=== PATIENT | female | born 1945 | race Caucasian/White ===

== ENCOUNTER 2017-03-22 15:32 | Outpatient (CLI) | payer MEDICARE, OTHER | END 2017-03-22 23:59 | disposition home or self-care (01) | DX: Z13.9 Encounter for screening, unspecified (principal); I10 Essential (primary) hypertension ==

== ENCOUNTER 2017-11-08 08:00 | Outpatient (CLI) | payer MEDICARE ==
[2017-11-08 19:13] LABS: BASOPHILS % (AUTO) 0.6 %; EOSINOPHILS # (AUTO) 0.1 10^3/uL (0.0-0.7); EOSINOPHILS % (AUTO) 2.5 %; HCT - HEMATOCRIT 42.6 % (37.0-47.0); LYMPHOCYTES # (AUTO) 1.5 10^3/uL (1.5-3.5); LYMPHOCYTES % (AUTO) 27.6 %; MEAN CORPUSCULAR HEMOGLOBIN 33.7 pg (27.0-31.0); MEAN CORPUSCULAR HGB CONC 32.8 g/dL (32.0-36.0); MEAN CORPUSCULAR VOLUME 102.7 fL (81.0-99.0); MEAN PLATELET VOLUME 10.1 fL (7.9-10.8); MONOCYTES # (AUTO) 0.8 10^3/uL (0.0-1.0); MONOCYTES % (AUTO) 13.7 %; NEUTROPHILS # (AUTO) 3.1 10^3/uL (1.5-6.6); NEUTROPHILS % (AUTO) 55.6 %; RED BLOOD COUNT 4.14 10^6/uL (4.20-5.40); RED CELL DISTRIBUTION WIDTH 13.6 % (12.0-15.0); UNCORRECTED WHITE BLOOD COUNT 5.6 x10^3/uL; WHITE BLOOD COUNT 5.6 x10^3/uL (4.8-10.8)
[2017-11-08 19:24] LABS: ALBUMIN/GLOBULIN RATIO 1.2 (1.0-2.2); BILIRUBIN,TOTAL 0.7 mg/dL (0.2-1.0); CALCIUM 8.9 mg/dL (8.5-10.3); CREATININE 0.7 mg/dL (0.4-1.0); POTASSIUM 3.4 mmol/L (3.5-5.0); TOTAL PROTEIN 6.5 g/dL (6.7-8.2)
== END 2017-11-08 08:01 | disposition home or self-care (01) ==
LOC: LAB.N 08:00
PROVIDERS: ATTEND Nurse Practitioner Gerontology
DX: D75.89 Other specified diseases of blood and blood-forming organs (principal); I10 Essential (primary) hypertension
CPT/HCPCS: 36415; 80053; 82607; 85025

== ENCOUNTER 2018-05-15 07:34 | Outpatient (CLI) | payer OTHER, MEDICARE | END 2018-05-15 07:35 | disposition critical access hospital (66) | LOC: EMS 07:34 | PROVIDERS: ATTEND Surgery | DX: R00.0 Tachycardia, unspecified (principal) | CPT/HCPCS: A0425; A0427 ==

== ENCOUNTER 2018-05-15 07:44 | Emergency (ER) | payer OTHER, MEDICARE ==
[2018-05-15 08:35] LABS: ALBUMIN 3.1 g/dL (3.2-5.5); BILIRUBIN,TOTAL 0.9 mg/dL (0.2-1.0); CALCIUM 9.2 mg/dL (8.5-10.3); CREATININE 0.7 mg/dL (0.4-1.0); TOTAL PROTEIN 6.1 g/dL (6.7-8.2)
[2018-05-15 08:36] LABS: BASOPHILS % (AUTO) 0.6 %; EOSINOPHILS # (AUTO) 0.2 10^3/uL (0.0-0.7); EOSINOPHILS % (AUTO) 3.9 %; HGB - HEMOGLOBIN 13.7 g/dL (12.0-16.0); LYMPHOCYTES # (AUTO) 1.8 10^3/uL (1.5-3.5); LYMPHOCYTES % (AUTO) 30.8 %; MEAN CORPUSCULAR HEMOGLOBIN 34.8 pg (27.0-31.0); MEAN CORPUSCULAR HGB CONC 33.6 g/dL (32.0-36.0); MEAN CORPUSCULAR VOLUME 103.4 fL (81.0-99.0); MEAN PLATELET VOLUME 9.9 fL (7.9-10.8); MONOCYTES # (AUTO) 0.6 10^3/uL (0.0-1.0); MONOCYTES % (AUTO) 10.9 %; NEUTROPHILS # (AUTO) 3.2 10^3/uL (1.5-6.6); NEUTROPHILS % (AUTO) 53.8 %; PLT - PLATELET COUNT 145 10^3/uL (130-450); RED BLOOD COUNT 3.94 10^6/uL (4.20-5.40); RED CELL DISTRIBUTION WIDTH 14.1 % (12.0-15.0); WHITE BLOOD COUNT 5.9 x10^3/uL (4.8-10.8)
--- NOTE | 2018-05-15 08:59 | ED Physician Documentation ---
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 This had an effect of significant increase in libido and the patient states that this was "scary" to her and they were up till about 4:00 in the morning. She noticed at about 4:00 that her heart was rapid and she took some atenolol. She took some more at 630 this morning and told her again that she was having some rapid heart rate and eventually the ambulance was called. She felt faint when this was occurring. Since arriving to the hospital the patient experienced resolution of symptoms and converted to sinus at 70. She has seen the county records management officer for rapid heart rate and had a 24 hour holter placed without findings. Review of Systems Constitutional: denies: Fever Eyes: denies: Decreased vision Ears: denies: Ear pain Nose: denies: Congestion Throat: denies: Sore throat Cardiac: reports: Palpitations. denies: Chest pain / pressure Respiratory: denies: Dyspnea, Cough GI: denies: Abdominal Pain, Nausea, Vomiting : denies: Dysuria, Frequency Skin: denies: Rash Musculoskeletal: denies: Neck pain, Back pain, Extremity pain Neurologic: denies: Generalized weakness, Focal weakness PD PAST MEDICAL HISTORY - Past Medical History Past Medical History: Yes Cardiovascular: Hypertension - Present Medications Home Medications: Ambulatory Orders Medication Instructions Recorded Confirmed Atenolol 05/15/18 Sulfamethoxazole/Trimethoprim 1 each PO BID #10 tablet 05/15/18 [Sulfamethoxazole-Tmp Ds Tablet] Triamterene/Hydrochlorothiazid 05/15/18 [Triamterene-Hctz 37.5-25 mg Cp] Zolpidem Tartrate [Ambien] 05/15/18 - Allergies Allergies/Adverse Reactions: Allergies Allergy/AdvReac Type Severity Reaction Status Date / Time Unable to Assess Allergy Verified 05/15/18 08:03 - Social History Does the pt smoke?: No Smoking Status: Never smoker Does the pt drink ETOH?: Yes Does the pt have substance abuse?: No - POLST Patient has POLST: No PD ED PE NORMAL - Vitals Vital signs reviewed: Yes (normal ) - General General: Alert and oriented X 3, No acute distress, Well developed/nourished, Other (72 y/o female appears younger than stated age and is in no distress in sinus.) - HEENT HEENT: Atraumatic, PERRL, EOMI - Neck Neck: Supple, no meningeal sign - Cardiac Cardiac: RRR, No murmur - Respiratory Respiratory: No respiratory distress, Clear bilaterally - Abdomen Abdomen: Soft, Non tender - Back Back: No CVA TTP, No spinal TTP - Derm Derm: Normal color, Warm and dry, No rash - Extremities Extremities: No deformity, No edema - Neuro Neuro: No motor deficit, No sensory deficit Eye Opening: Spontaneous Motor: Obeys Commands Verbal: Oriented GCS Score: 15 - Psych Psych: Normal mood, Normal affect Results - Vitals Vitals: Vital Signs - 24 hr 05/15/18 05/15/18 05/15/18 07:51 10:29 11:44 Temperature 36.4 C L 36.1 C L Heart Rate 76 63 63 Respiratory 20 16 16 Rate Blood Pressure 98/65 105/63 100/69 O2 Saturation 97 97 97 Oxygen O2 Source Room air - EKG (time done) 0751 Rate: Rate (enter#) (100) Rhythm: Atrial fibrillation Ischemia: Normal ST segments Compare to prior EKG: Old EKG unavailable Computer interpretation: Disagree with computer (I am not able to identify ST depression in the inferior leads. ) 00247 Rate: Rate (enter#) (75) Rhythm: NSR, LAE Compare to prior EKG: Changed from prior EKG (SPT earlier today the rate has decreased and the rhythm has converted to sinus. ) Computer interpretation: Agree with computer - Labs Labs: Laboratory Tests 05/15/18 05/15/18 05/15/18 08:18 08:18 08:18 WBC 5.9 RBC 3.94 L Hgb 13.7 Hct 40.7 MCV 103.4 H MCH 34.8 H MCHC 33.6 RDW 14.1 Plt Count 145 MPV 9.9 Neut # (Auto) 3.2 Lymph # (Auto) 1.8 [place] # (Auto) 0.6 Eos # (Auto) 0.2 Baso # (Auto) 0.0 Absolute Nucleated RBC 0.00 Nucleated RBC % 0.0 Sodium 141 Potassium 3.3 L Chloride 97 L Carbon Dioxide 30 Anion Gap 14.0 H BUN 18 Creatinine 0.7 Estimated GFR (MDRD) 82 L Glucose 119 H Calcium 9.2 Total Bilirubin 0.9 AST 59 H ALT 46 Alkaline Phosphatase 83 Troponin I < 0.04 Total Protein 6.1 L Albumin 3.1 L Globulin 3.0 Albumin/Globulin Ratio 1.0 Lipase 49 Urine Color Urine Clarity Urine pH Ur Specific [place] Urine Protein Urine Glucose (UA) Urine Ketones Urine Occult Blood Urine Nitrite Urine Bilirubin Urine Urobilinogen Ur Leukocyte Esterase Urine RBC Urine WBC Ur Squamous Epith Cells Urine Bacteria Ur Microscopic Review Urine Culture Comments 05/15/18 10:30 WBC RBC Hgb Hct MCV MCH MCHC RDW Plt Count MPV Neut # (Auto) Lymph # (Auto) [place] # (Auto) Eos # (Auto) Baso # (Auto) Absolute Nucleated RBC Nucleated RBC % Sodium Potassium Chloride Carbon Dioxide Anion Gap BUN Creatinine Estimated GFR (MDRD) Glucose Calcium Total Bilirubin AST ALT Alkaline Phosphatase Troponin I Total Protein Albumin Globulin Albumin/Globulin Ratio Lipase Urine Color YELLOW Urine Clarity CLEAR Urine pH 6.5 Ur Specific [place] 1.015 Urine Protein NEGATIVE Urine Glucose (UA) NEGATIVE Urine Ketones 40 H Urine Occult Blood NEGATIVE Urine Nitrite NEGATIVE Urine Bilirubin NEGATIVE Urine Urobilinogen 0.2 (NORMAL) Ur Leukocyte Esterase SMALL H Urine RBC None Seen Urine WBC 6-10 H Ur Squamous Epith Cells RARE Squamous Urine Bacteria Rare Ur Microscopic Review INDICATED Urine Culture Comments INDICATED Procedures - IVC sono (time) 0855 Bedside IVC sono: IVC measures (cm) (1.54), Euvolemia PD MEDICAL DECISION MAKING - ED course Complexity details: reviewed old records, reviewed results, re-evaluated patient , considered differential, d/w patient, d/w family ED course: 72 y/o female with a history of rapid heart rate was in afib with rapid rate and has spontaneously converted to sinus. She is euvolemic on interrogation of the IVC and trop is negative and the patient is asymptomatic. On evaluation she is found to have urinary tract infection and this is aggressively treated with 1 g of Rocephin intravenously. - Sepsis Event Vital Signs: Vital Signs - 24 hr 05/15/18 05/15/18 05/15/18 07:51 10:29 11:44 Temperature 36.4 C L 36.1 C L Heart Rate 76 63 63 Respiratory 20 16 16 Rate Blood Pressure 98/65 105/63 100/69 O2 Saturation 97 97 97 Oxygen O2 Source Room air Departure - Departure Disposition: 01 Home, Self Care Clinical Impression: Atrial fibrillation Qualifiers: Atrial fibrillation type: paroxysmal Qualified Code(s): I48.0 - Paroxysmal atrial fibrillation Urinary tract infection Qualifiers: Urinary tract infection type: acute cystitis Hematuria presence: without hematuria Qualified Code(s): N30.00 - Acute cystitis without hematuria Condition: Stable Instructions: ED Afib, ED UTI Cystitis Female Follow-Up: Selina Barrera ARNP [Primary Care Provider] - Prescriptions: Sulfamethoxazole/Trimethoprim [Sulfamethoxazole-Tmp Ds Tablet] 1 each PO BID # 10 tablet Comments: Today you were found to be in afib and this has now converted to a normal rhythm. Follow up with your primary doctor to consider anticoagulation. Discharge Date/Time: 05/15/18 12:00
[2018-05-15] MEDS ORDERED: POTASSIUM BICARB 25 MEQ TABLET PO STA (09:08)
--- NOTE | 2018-05-15 10:24 | XRAY Report ---
Procedure Date: 05/15/2018 Accession Number: [id number] / [id number] Procedure: XR - Chest 2 View X-Ray CPT Code: 93824 FULL RESULT: EXAM: CHEST RADIOGRAPHY EXAM DATE: 05/15/2018 09:48 AM. CLINICAL HISTORY: Shortness of breath. COMPARISON: None. TECHNIQUE: 2 views. FINDINGS: Lungs/Pleura: No focal opacities evident. No pleural effusion. No pneumothorax. Normal volumes. Mediastinum: Heart and mediastinal contours are unremarkable. Other: Moderate scoliotic curvature of the thoracic spine is seen. IMPRESSION: No acute findings. Scoliosis seen. RADIA
[2018-05-15 10:35] LABS: BILIRUBIN,URINE NEGATIVE (NEGATIVE); GLUCOSE, URINE (UA) NEGATIVE (NEGATIVE); KETONES,URINE (UA) 40 mg/dL (NEGATIVE); LEUKOCYTE ESTERASE, URINE SMALL (NEGATIVE); NITRITE,URINE NEGATIVE (NEGATIVE); OCCULT BLOOD,URINE NEGATIVE (NEGATIVE); PH,URINE 6.5 PH (5.0-7.5); PROTEIN,URINE NEGATIVE (NEGATIVE); UROBILINOGEN,URINE 0.2 (NORMAL) E.U./dL (NORMAL)
[2018-05-15 10:39] LABS: CLARITY,URINE CLEAR (CLEAR)
[2018-05-15 10:53] LABS: BACTERIA,URINE Rare /HPF (None Seen); RBC,URINE None Seen /HPF (0-5); SQUAMOUS EPITHELIAL CELL,UR RARE Squamous (<= Few)
[2018-05-15] MEDS ORDERED: cefTRIAXone 1 GM in SODIUM CHLORIDE 0.9% MINIBAG 100 ML IV STA (11:28)
[2018-05-15 11:45] VITALS: BP 100/69
== END 2018-05-15 12:00 | disposition home or self-care (01) ==
LOC: EDUNIT# → ED 07:44
DX: I48.0 Paroxysmal atrial fibrillation (principal); N30.00 Acute cystitis without hematuria; I10 Essential (primary) hypertension
CPT/HCPCS: 36415; 71046; 80053; 81001; 83690; 84484; 85025; 87086; 93005; 96365; 99284; A9270; 81003

== ENCOUNTER 2018-05-23 08:00 | Outpatient (CLI) | payer OTHER, MEDICARE ==
[2018-05-23 18:49] LABS: ALBUMIN 3.1 g/dL (3.2-5.5); ALBUMIN/GLOBULIN RATIO 1.1 (1.0-2.2); BILIRUBIN,TOTAL 0.7 mg/dL (0.2-1.0); CALCIUM 8.8 mg/dL (8.5-10.3); CREATININE 0.7 mg/dL (0.4-1.0)
== END 2018-05-23 08:01 | disposition home or self-care (01) ==
LOC: LAB.N 08:00
PROVIDERS: ATTEND Nurse Practitioner Gerontology
DX: R74.8 Abnormal levels of other serum enzymes (principal); E87.6 Hypokalemia
CPT/HCPCS: 36415; 80053

== ENCOUNTER 2018-07-17 13:26 | Outpatient (CLI) | payer MEDICARE, OTHER ==
[2018-07-17 13:53] LABS: CALCIUM 8.8 mg/dL (8.5-10.3); CREATININE 0.7 mg/dL (0.4-1.0)
== END 2018-07-17 13:27 | disposition home or self-care (01) ==
LOC: LAB 13:26
DX: I10 Essential (primary) hypertension (principal)
CPT/HCPCS: 36415; 80048

== ENCOUNTER 2018-07-18 04:33 | Emergency (ER) | payer MEDICARE, OTHER ==
[2018-07-18 05:22] LABS: BASOPHILS % (AUTO) 0.7 %; EOSINOPHILS # (AUTO) 0.1 10^3/uL (0.0-0.7); EOSINOPHILS % (AUTO) 1.9 %; HGB - HEMOGLOBIN 14.5 g/dL (12.0-16.0); LYMPHOCYTES # (AUTO) 1.9 10^3/uL (1.5-3.5); LYMPHOCYTES % (AUTO) 26.4 %; MEAN CORPUSCULAR HEMOGLOBIN 34.6 pg (27.0-31.0); MEAN CORPUSCULAR HGB CONC 33.9 g/dL (32.0-36.0); MEAN CORPUSCULAR VOLUME 102.2 fL (81.0-99.0); MEAN PLATELET VOLUME 9.3 fL (7.9-10.8); MONOCYTES # (AUTO) 0.7 10^3/uL (0.0-1.0); NEUTROPHILS # (AUTO) 4.3 10^3/uL (1.5-6.6); PLT - PLATELET COUNT 164 10^3/uL (130-450); RED BLOOD COUNT 4.19 10^6/uL (4.20-5.40); RED CELL DISTRIBUTION WIDTH 13.7 % (12.0-15.0); WHITE BLOOD COUNT 7.1 x10^3/uL (4.8-10.8)
[2018-07-18] MEDS ORDERED: SODIUM CHLORIDE 0.9% 1,000 ML IV ONE ×2 (05:25→07:28)
[2018-07-18 05:35] LABS: ALBUMIN 3.8 g/dL (3.2-5.5); ALBUMIN/GLOBULIN RATIO 1.4 (1.0-2.2); BILIRUBIN,TOTAL 1.3 mg/dL (0.2-1.0); CALCIUM 9.3 mg/dL (8.5-10.3); CREATININE 0.7 mg/dL (0.4-1.0); TOTAL PROTEIN 6.6 g/dL (6.7-8.2)
[2018-07-18] MEDS ORDERED: POTASSIUM BICARB 25 MEQ TABLET PO STA (05:43)
--- NOTE | 2018-07-18 07:31 | ED Physician Documentation ---
History of Present Illness - Stated complaint Stated Complaint: RAPID HEART RATE/DIZZY - Chief complaint Chief Complaint: Cardiac - History obtained from History obtained from: Patient, Family - History of Present Illness Timing: Enter time (329), Today - Additonal information Additional information: 72-year-old female with a history of intermittent atrial fibrillation awoke at 3 :30 in the morning with a rapid heart rate of 149. She took some extra atenolol and this began to kick in about the time she arrived here at the hospital. She complains of some cramping in her left anterior thigh. She otherwise states that she has been in her usual state of health doing her usual activities and the weather recently has been warm and has been smoking outside and people of stayed indoors with doors and windows shut. Review of Systems Constitutional: denies: Fever, Chills, Myalgias Eyes: denies: Decreased vision Ears: denies: Ear pain Nose: denies: Congestion Throat: denies: Sore throat Cardiac: reports: Palpitations. denies: Chest pain / pressure Respiratory: denies: Dyspnea, Cough GI: denies: Abdominal Pain, Nausea, Vomiting, Constipation, Diarrhea : denies: Dysuria, Frequency Skin: denies: Rash Musculoskeletal: reports: Extremity pain. 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 - Present Medications Home Medications: Ambulatory Orders Medication Instructions Recorded Confirmed Atenolol 05/15/18 Sulfamethoxazole/Trimethoprim 1 each PO BID #10 tablet 05/15/18 [Sulfamethoxazole-Tmp Ds Tablet] Triamterene/Hydrochlorothiazid 05/15/18 [Triamterene-Hctz 37.5-25 mg Cp] Zolpidem Tartrate [Ambien] 05/15/18 - Allergies Allergies/Adverse Reactions: Allergies Allergy/AdvReac Type Severity Reaction Status Date / Time Unable to Assess Allergy Verified 07/18/18 04:47 - Social History Does the pt smoke?: No Smoking Status: Never smoker Does the pt drink ETOH?: Yes Does the pt have substance abuse?: No - Immunizations Immunizations are current?: No - POLST Patient has POLST: No PD ED PE NORMAL - Vitals Vital signs reviewed: Yes (normal ) - General General: Alert and oriented X 3, No acute distress, Well developed/nourished - HEENT HEENT: Atraumatic, PERRL, EOMI - Neck Neck: Supple, no meningeal sign - Cardiac Cardiac: RRR, No murmur - Respiratory Respiratory: No respiratory distress, Clear bilaterally - Abdomen Abdomen: Soft, Non tender - Back Back: No CVA TTP, No spinal TTP - Derm Derm: Normal color, Warm and dry, No rash - Extremities Extremities: No deformity, No edema - Neuro Neuro: Alert and oriented X 3, tube operator 2-12 intact, No motor deficit, No sensory deficit, Normal speech Eye Opening: Spontaneous Motor: Obeys Commands Verbal: Oriented GCS Score: 15 - Psych Psych: Normal mood, Normal affect Results - Vitals Vitals: Vital Signs - 24 hr 07/18/18 07/18/18 07/18/18 04:42 05:35 05:49 Temperature 37.1 C Heart Rate 73 63 71 Respiratory 12 19 17 Rate Blood Pressure 117/69 121/70 121/76 O2 Saturation 97 97 97 07/18/18 07/18/18 07/18/18 06:24 08:30 09:34 Temperature Heart Rate 64 62 62 Respiratory 18 18 16 Rate Blood Pressure 129/78 146/83 H 127/73 O2 Saturation 95 99 96 Oxygen O2 Source Room air - EKG (time done) 0537 Rate: Rate (enter#) (62) Rhythm: NSR, LAE Compare to prior EKG: Unchanged from prior EKG Computer interpretation: Agree with computer 0506 Rate: Rate (enter#) (62) Rhythm: NSR Ischemia: ST elevation c/w repol Compare to prior EKG: Changed from prior EKG (V3 ) Computer interpretation: Agree with computer - Labs Labs: Laboratory Tests 07/18/18 07/18/18 07/18/18 05:10 05:10 05:10 WBC 7.1 RBC 4.19 L Hgb 14.5 Hct 42.8 MCV 102.2 H MCH 34.6 H MCHC 33.9 RDW 13.7 Plt Count 164 MPV 9.3 Neut # (Auto) 4.3 Lymph # (Auto) 1.9 [place] # (Auto) 0.7 Eos # (Auto) 0.1 Baso # (Auto) 0.0 Absolute Nucleated RBC 0.00 Nucleated RBC % 0.0 Sodium 140 Potassium 3.0 L Chloride 97 L Carbon Dioxide 31 Anion Gap 12.0 BUN 11 Creatinine 0.7 Estimated GFR (MDRD) 82 L Glucose 121 H Calcium 9.3 Phosphorus Magnesium Total Bilirubin 1.3 H AST 45 H ALT 33 Alkaline Phosphatase 59 Troponin I < 0.04 Total Protein 6.6 L Albumin 3.8 Globulin 2.8 Albumin/Globulin Ratio 1.4 Lipase 60 H Urine Color Urine Clarity Urine pH Ur Specific [place] Urine Protein Urine Glucose (UA) Urine Ketones Urine Occult Blood Urine Nitrite Urine Bilirubin Urine Urobilinogen Ur Leukocyte Esterase Ur Microscopic Review Urine Culture Comments 07/18/18 07/18/18 07/18/18 05:10 06:30 07:44 WBC RBC Hgb Hct MCV MCH MCHC RDW Plt Count MPV Neut # (Auto) Lymph # (Auto) [place] # (Auto) Eos # (Auto) Baso # (Auto) Absolute Nucleated RBC Nucleated RBC % Sodium Potassium Chloride Carbon Dioxide Anion Gap BUN Creatinine Estimated GFR (MDRD) Glucose Calcium Phosphorus 3.4 Magnesium 1.5 L Total Bilirubin AST ALT Alkaline Phosphatase Troponin I < 0.04 Total Protein Albumin Globulin Albumin/Globulin Ratio Lipase Urine Color YELLOW Urine Clarity CLEAR Urine pH 8.0 H Ur Specific [place] 1.015 Urine Protein NEGATIVE Urine Glucose (UA) NEGATIVE Urine Ketones 15 H Urine Occult Blood NEGATIVE Urine Nitrite NEGATIVE Urine Bilirubin NEGATIVE Urine Urobilinogen 0.2 (NORMAL) Ur Leukocyte Esterase NEGATIVE Ur Microscopic Review NOT INDICATED Urine Culture Comments NOT INDICATED Procedures - IVC sono (time) 0725 Bedside IVC sono: IVC measures (cm) (1.02), IVC collapsed c insp (cm) (complete) , Dehydration (est deficit of 1-2 liters.) PD MEDICAL DECISION MAKING - ED course Complexity details: reviewed old records, reviewed results, re-evaluated patient , considered differential, d/w patient, d/w family ED course: 72-year-old female with a history of intermittent atrial fibrillation arrives to the emergency department and is in sinus rhythm on our evaluation. She is found to be significantly dehydrated on interrogation the inferior vena cava and her potassium is again low. I have come in to the patient's case after she has been administered 50 mEq of potassium. She is asymptomatic at the time but continues to have a diminished volume and she is administered saline. A urine specimen is obtained. - Sepsis Event Vital Signs: Vital Signs - 24 hr 07/18/18 07/18/18 07/18/18 04:42 05:35 05:49 Temperature 37.1 C Heart Rate 73 63 71 Respiratory 12 19 17 Rate Blood Pressure 117/69 121/70 121/76 O2 Saturation 97 97 97 07/18/18 07/18/18 07/18/18 06:24 08:30 09:34 Temperature Heart Rate 64 62 62 Respiratory 18 18 16 Rate Blood Pressure 129/78 146/83 H 127/73 O2 Saturation 95 99 96 Oxygen O2 Source Room air Departure - Departure Disposition: 01 Home, Self Care Clinical Impression: Atrial fibrillation with RVR, Dehydration, Hypokalemia Condition: Stable Instructions: Hypokalemia Dc, ED Afib, ED Dehydration Follow-Up: Selina Barrera ARNP [Primary Care Provider] - Discharge Date/Time: 07/18/18 09:55
[2018-07-18 08:26] LABS: BILIRUBIN,URINE NEGATIVE (NEGATIVE); GLUCOSE, URINE (UA) NEGATIVE (NEGATIVE); KETONES,URINE (UA) 15 mg/dL (NEGATIVE); LEUKOCYTE ESTERASE, URINE NEGATIVE (NEGATIVE); NITRITE,URINE NEGATIVE (NEGATIVE); OCCULT BLOOD,URINE NEGATIVE (NEGATIVE); PROTEIN,URINE NEGATIVE (NEGATIVE); UROBILINOGEN,URINE 0.2 (NORMAL) E.U./dL (NORMAL)
[2018-07-18 08:29] LABS: CLARITY,URINE CLEAR (CLEAR)
[2018-07-18 09:34] VITALS: BP 127/73
[2018-07-18 09:56] LABS: MAGNESIUM 1.5 mg/dL (1.7-2.8); PHOSPHORUS 3.4 mg/dL (2.5-4.6)
== END 2018-07-18 09:55 | disposition home or self-care (01) ==
LOC: ED 04:33
DX: I48.91 Unspecified atrial fibrillation (principal); E86.0 Dehydration; E87.6 Hypokalemia; I10 Essential (primary) hypertension; E11.9 Type 2 diabetes mellitus without complications
CPT/HCPCS: 36415; 80053; 81003; 83690; 83735; 84100; 84484; 85025; 93005; 96360; 99284; A9270; 81001; 87086

== ENCOUNTER 2018-07-30 10:22 | Outpatient (CLI) | payer MEDICARE, OTHER ==
[2018-07-30 11:17] LABS: CALCIUM 9.1 mg/dL (8.5-10.3); CREATININE 0.6 mg/dL (0.4-1.0); MAGNESIUM 1.3 mg/dL (1.7-2.8)
== END 2018-07-30 10:23 | disposition home or self-care (01) ==
LOC: LAB 10:22
PROVIDERS: ATTEND Nurse Practitioner
DX: E87.6 Hypokalemia (principal); E87.5 Hyperkalemia; D75.89 Other specified diseases of blood and blood-forming organs; E83.42 Hypomagnesemia
CPT/HCPCS: 36415; 80048; 82607; 82747; 83735

== ENCOUNTER 2018-08-28 13:41 | Outpatient (CLI) | payer MEDICARE, OTHER ==
[2018-08-28 14:12] LABS: CALCIUM 9.7 mg/dL (8.5-10.3); CREATININE 0.7 mg/dL (0.4-1.0); MAGNESIUM 1.7 mg/dL (1.7-2.8)
== END 2018-08-28 13:42 | disposition home or self-care (01) ==
LOC: LAB 13:41
PROVIDERS: ATTEND Nurse Practitioner
DX: E87.6 Hypokalemia (principal); E83.42 Hypomagnesemia
CPT/HCPCS: 36415; 80048; 83735

== ENCOUNTER 2018-09-19 13:01 | Outpatient (CLI) | payer OTHER, MEDICARE ==
[2018-09-19 13:42] LABS: ALBUMIN 3.8 g/dL (3.2-5.5); CALCIUM 10.1 mg/dL (8.5-10.3); CREATININE 0.5 mg/dL (0.4-1.0); MAGNESIUM 1.6 mg/dL (1.7-2.8); PHOSPHORUS 3.6 mg/dL (2.5-4.6)
[2018-09-19 13:43] LABS: CREATININE,URINE 79.5 mg/dL; POTASSIUM,URINE 78.5 mmol/L
== END 2018-09-19 13:02 | disposition home or self-care (01) ==
LOC: LAB 13:01
PROVIDERS: ATTEND Internal Medicine Nephrology
DX: I15.9 Secondary hypertension, unspecified (principal)
CPT/HCPCS: 36415; 80069; 82088; 82570; 83735; 84133; 84244

== ENCOUNTER 2018-09-28 14:54 | Outpatient (CLI) | payer MEDICARE, OTHER ==
--- NOTE | 2018-09-29 00:41 | Ultrasound Report ---
Reason: DIZZINESS, CHRONIC, LYMPHADENOPATHY Procedure Date: 09/28/2018 Accession Number: [id number] / [id number] Procedure: US - Head or Neck Soft Tissue CPT Code: FULL RESULT: EXAM: NECK ULTRASOUND EXAM DATE: 09/28/2018 03:49 PM. CLINICAL HISTORY: Dizziness, chronic; lymphadenopathy. COMPARISON: None. TECHNIQUE: Real-time sonographic imaging was performed by the faceter utilizing color-flow. Multiple residential sales representative static images were saved for review. FINDINGS: Normal-appearing lymph nodes at the site of left neck palpable lump, 1.2 x 0.3 x 0.7 cm and 0.5 x 0.2 x 0.4 cm. No other masses or abnormal lymph nodes. IMPRESSION: Normal superficial lymph nodes corresponding to the palpable left neck lump. RADIA
--- NOTE | 2018-09-29 01:09 | Ultrasound Report ---
Reason: DIZZINESS, CHRONIC, LYMPHADENOPATHY Procedure Date: 09/28/2018 Accession Number: [id number] / [id number] Procedure: US - Carotid Doppler Complete CPT Code: FULL RESULT: EXAM: BILATERAL CAROTID AND VERTEBRAL ARTERY DUPLEX DOPPLER ULTRASOUND: EXAM DATE: 09/28/2018 03:15 PM CLINICAL HISTORY: Dizziness, chronic; lymphadenopathy. COMPARISON: None. TECHNIQUE: Grayscale imaging, color Doppler, and duplex spectral Doppler were used to evaluate the carotid and vertebral arteries bilaterally. Static images were obtained. FINDINGS: Grayscale evaluation of the carotid vessels demonstrates mild to moderate calcified plaque at the carotid bulbs bilaterally. No significant hypoechoic or calcified plaque seen within the internal carotid arteries. Peak systolic velocities are within normal limits. Normal antegrade flow is present in bilateral vertebral arteries. VELOCITIES (cm/sec): Right CCA mid: PSV 101.4 cm/sec CCA dist: PSV 72.8 cm/sec ICA prox: PSV 58.8 cm/sec, EDV 16.8 cm/sec ICA mid: PSV 98.0 cm/sec, EDV 32.5 cm/sec ICA dist: PSV 116.0 cm/sec, EDV 27.7 cm/sec ECA: PSV 129.2 cm/sec Vert: PSV 58.2 cm/sec ICA/CCA: 1.59 Left CCA mid: PSV 92.8 cm/sec CCA dist: PSV 86.9 cm/sec ICA prox: PSV 104.8 cm/sec, EDV 30.3 cm/sec ICA mid: PSV 153.1 cm/sec, EDV 44.8 cm/sec ICA dist: PSV 86.8 cm/sec, EDV 27.1 cm/sec ECA: PSV 90.2 cm/sec Vert: PSV 56.5 cm/sec ICA/CCA: 1.76 ICA diameter stenosis: Right: <50% by velocity and <70% by NASCET criteria. Left: <50% by velocity and <70% by NASCET criteria. IMPRESSION: 1. Mild to moderate bilateral carotid bulb atheromatous plaque with no hemodynamically significant stenosis. General Recommendations: Stenosis =50% ICA - Follow-up ultrasound 6-12 months Stenosis <50% ICA - High Risk Patient with plaque - Follow-up ultrasound 1-2 years Normal Study but High Risk Patient - Follow-up ultrasound 3-5 years Management recommendations and diagnostic criteria are based on current IAC endorsed standards in Carotid Artery Stenosis: Grayscale and Doppler Ultrasound Diagnosis. Validated velocity measurements with angiographic measurements and velocity criteria are extrapolated from diameter data as defined by the Society of Radiologists in Ultrasound Consensus Conference Radiology 2003; 229;340-346. RADIA
== END 2018-09-28 14:55 | disposition home or self-care (01) ==
LOC: DI 14:54
PROVIDERS: ATTEND Nurse Practitioner
DX: R42 Dizziness and giddiness (principal); R59.1 Generalized enlarged lymph nodes
CPT/HCPCS: 76536; 93880

== ENCOUNTER 2018-10-03 12:18 | Outpatient (CLI) | payer OTHER, MEDICARE | END 2018-10-03 12:19 | disposition critical access hospital (66) | LOC: EMS 12:18 | PROVIDERS: ATTEND Surgery | DX: R11.0 Nausea (principal); R10.9 Unspecified abdominal pain; R53.1 Weakness | CPT/HCPCS: A0425; A0427 ==

== ENCOUNTER 2018-10-03 12:29 | Emergency (ER) | payer OTHER, MEDICARE ==
[2018-10-03] MEDS ORDERED: SODIUM CHLORIDE 0.9% 1,000 ML IV ONE (12:38)
--- NOTE | 2018-10-03 12:45 | ED Physician Documentation ---
History of Present Illness - Stated complaint Stated Complaint: NAUSEA VOMITING - Additonal information Additional information: hx from pt 73 female s/p hyst to ED for abd discomfort, NV, temp to 100.6 for one week has had lesser stomach discomfort usually after eating breakfast and lasting all morning for a year - not worked up today had above sx and also near syncope hx int a fib, no blood thinners today had skipped beat feeling but not tachycardic, HR was low 50s per pt no diarrhea no bloody black BM no chest pain no back pain no travel bad food sick contacts etc home meds traimaterene, atenolol, metformin, ambien, magnesium, potassium All maybe zithromax (made her blood sugar go low) Review of Systems Constitutional: reports: Fever, Fatigue. denies: Chills Cardiac: reports: Palpitations. denies: Chest pain / pressure Respiratory: denies: Dyspnea GI: reports: Abdominal Pain, Nausea, Vomiting. denies: Diarrhea, Bloody / black stool : denies: Dysuria Musculoskeletal: denies: Back pain Neurologic: reports: Generalized weakness, Near syncope. 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 - Present Medications Home Medications: Ambulatory Orders Medication Instructions Recorded Confirmed Atenolol 05/15/18 Triamterene/Hydrochlorothiazid 1 each 05/15/18 [Triamterene-Hctz 37.5-25 mg Cp] Zolpidem Tartrate [Ambien] 05/15/18 Ondansetron Odt [Zofran] 4 mg TL Q6H PRN #10 tablet 10/03/18 Potassium Chloride 30 meq PO 10/03/18 Sucralfate [Carafate] 1 gm PO ACHS #120 tablet 10/03/18 metFORMIN [Glucophage] 10/03/18 raNITIdine [Zantac] 150 mg PO BID #60 tablet 10/03/18 - Allergies Allergies/Adverse Reactions: Allergies Allergy/AdvReac Type Severity Reaction Status Date / Time Unable to Assess Allergy Verified 10/03/18 12:41 - Social History Does the pt smoke?: No Smoking Status: Never smoker Does the pt drink ETOH?: Yes Does the pt have substance abuse?: No - Immunizations Immunizations are current?: No - POLST Patient has POLST: No PD ED PE NORMAL - Vitals Vital signs reviewed: Yes - General General: Alert and oriented X 3 - HEENT HEENT: PERRL - Neck Neck: Supple, no meningeal sign - Cardiac Cardiac: RRR - Respiratory Respiratory: No respiratory distress, Clear bilaterally - Abdomen Abdomen: Soft, Non tender - Derm Derm: Normal color - Extremities Extremities: No deformity - Neuro Neuro: Alert and oriented X 3 Results - Vitals Vitals: Vital Signs - 24 hr 10/03/18 10/03/18 10/03/18 12:38 13:43 14:29 Temperature 37.1 C Heart Rate 64 60 66 Respiratory 16 14 18 Rate Blood Pressure 121/59 L 106/60 115/68 O2 Saturation 97 98 98 Oxygen O2 Source Room air - EKG (time done) 1304 Rate: Rate (enter#) (60) Rhythm: NSR [place]: Normal Intervals: Normal [place]. No: Prolonged QT QRS: Normal Ischemia: Normal ST segments - Labs Labs: Laboratory Tests 10/03/18 10/03/18 10/03/18 12:45 12:45 12:45 WBC 4.7 L RBC 3.71 L Hgb 13.0 Hct 37.7 MCV 101.7 H MCH 35.1 H MCHC 34.5 RDW 13.3 Plt Count 162 MPV 8.7 Neut # (Auto) 2.4 Lymph # (Auto) 1.[address] [place] # (Auto) 0.5 Eos # (Auto) 0.3 Baso # (Auto) 0.0 Absolute Nucleated RBC 0.00 Nucleated RBC % 0.0 Sodium 137 Potassium 3.5 Chloride 98 L Carbon Dioxide 34 H Anion Gap 5.0 L BUN 13 Creatinine 0.6 Estimated GFR (MDRD) 98 Glucose 179 H Calcium 8.9 Magnesium 1.5 L Total Bilirubin 0.5 AST 41 ALT 28 Alkaline Phosphatase 62 Total Protein 5.7 L Albumin 3.3 Globulin 2.4 Albumin/Globulin Ratio 1.4 Lipase 48 Urine Color Urine Clarity Urine pH Ur Specific [place] Urine Protein Urine Glucose (UA) Urine Ketones Urine Occult Blood Urine Nitrite Urine Bilirubin Urine Urobilinogen Ur Leukocyte Esterase Urine RBC Urine WBC Ur Squamous Epith Cells Urine Bacteria Ur Microscopic Review Urine Culture Comments 10/03/18 12:55 WBC RBC Hgb Hct MCV MCH MCHC RDW Plt Count MPV Neut # (Auto) Lymph # (Auto) [place] # (Auto) Eos # (Auto) Baso # (Auto) Absolute Nucleated RBC Nucleated RBC % Sodium Potassium Chloride Carbon Dioxide Anion Gap BUN Creatinine Estimated GFR (MDRD) Glucose Calcium Magnesium Total Bilirubin AST ALT Alkaline Phosphatase Total Protein Albumin Globulin Albumin/Globulin Ratio Lipase Urine Color YELLOW Urine Clarity CLEAR Urine pH 7.5 Ur Specific [place] 1.015 Urine Protein TRACE Urine Glucose (UA) 100 H Urine Ketones NEGATIVE Urine Occult Blood NEGATIVE Urine Nitrite NEGATIVE Urine Bilirubin NEGATIVE Urine Urobilinogen 0.2 (NORMAL) Ur Leukocyte Esterase SMALL H Urine RBC 0-5 Urine WBC 6-10 H Ur Squamous Epith Cells RARE Squamous Urine Bacteria None Seen Ur Microscopic Review INDICATED Urine Culture Comments INDICATED - Rads (name of study) CT AP Radiology: See rad report (no acute process) PD MEDICAL DECISION MAKING - ED course ED course: CO2 mildly elevated - reviewed old labs - this is not new - about the same for the last 5 years she seems to have several issues going on 1) the abd pain after eating breakfast for a year - CT and labs reassuring - she does take a lot of potassium supplements so perhaps gastritis PUD 2) low grade fever nausea for a week - has a UTI perhaps this is the source - will tx with keflex 3) near syncope today - had palp then - hx int a fib maybe has episode - in any case feels fine now and EKG and tele NSR and nl labs will dc with trial zantac and carafate and referral for EGD, and keflex for UTI pt wanted mag level checked as she has been low in past - that could contribute to syncope so added on and held dc pending results Departure - Departure Disposition: Home, Self Care Clinical Impression: Abdominal pain Qualifiers: Abdominal location: generalized Qualified Code(s): R10.84 - Generalized abdominal pain Condition: Good Instructions: ED Abdominal Pain Unkn Cause, ED UTI Cystitis Female Follow-Up: France Spears DNP [Primary Care Provider] - Bear Addison MD [Provider Admit Priv/Credential] - (for consideration of a scope of your stomach to evaluate the abdominal pain and nausea) Prescriptions: Ondansetron Odt [Zofran] 4 mg TL Q6H PRN #10 tablet PRN Reason: Nausea / Vomiting raNITIdine [Zantac] 150 mg PO BID #60 tablet Sucralfate [Carafate] 1 gm PO ACHS #120 tablet Comments: The CT scan was fine. Your labs were fine or unchanged except your magnesium which was slightly low so we gave you a dose in the ER There was a urine infection which may have caused your fever so I have prescribed an antibiotic called harish Lemos the abdominal pain and nausea after eating could be symptoms of an ulcer so I recommend a trial of zantac and carafate and have referred you to the surgeons for consideration of a scope. Please avoid alcohol and NSAIDs like motrin Return if worse
[2018-10-03 12:51] LABS: BASOPHILS % (AUTO) 0.4 %; EOSINOPHILS # (AUTO) 0.3 10^3/uL (0.0-0.7); LYMPHOCYTES # (AUTO) 1.4 10^3/uL (1.5-3.5); LYMPHOCYTES % (AUTO) 30.5 %; MEAN CORPUSCULAR HEMOGLOBIN 35.1 pg (27.0-31.0); MEAN CORPUSCULAR HGB CONC 34.5 g/dL (32.0-36.0); MEAN CORPUSCULAR VOLUME 101.7 fL (81.0-99.0); MEAN PLATELET VOLUME 8.7 fL (7.9-10.8); MONOCYTES # (AUTO) 0.5 10^3/uL (0.0-1.0); MONOCYTES % (AUTO) 11.7 %; NEUTROPHILS # (AUTO) 2.4 10^3/uL (1.5-6.6); NEUTROPHILS % (AUTO) 51.4 %; PLT - PLATELET COUNT 162 10^3/uL (130-450); RED BLOOD COUNT 3.71 10^6/uL (4.20-5.40); RED CELL DISTRIBUTION WIDTH 13.3 % (12.0-15.0); WHITE BLOOD COUNT 4.7 x10^3/uL (4.8-10.8)
[2018-10-03 13:04] LABS: ALBUMIN 3.3 g/dL (3.2-5.5); ALBUMIN/GLOBULIN RATIO 1.4 (1.0-2.2); BILIRUBIN,TOTAL 0.5 mg/dL (0.2-1.0); CALCIUM 8.9 mg/dL (8.5-10.3); CREATININE 0.6 mg/dL (0.4-1.0); TOTAL PROTEIN 5.7 g/dL (6.7-8.2)
[2018-10-03 13:14] LABS: BILIRUBIN,URINE NEGATIVE (NEGATIVE); GLUCOSE, URINE (UA) 100 mg/dL (NEGATIVE); KETONES,URINE (UA) NEGATIVE (NEGATIVE); LEUKOCYTE ESTERASE, URINE SMALL (NEGATIVE); NITRITE,URINE NEGATIVE (NEGATIVE); OCCULT BLOOD,URINE NEGATIVE (NEGATIVE); PH,URINE 7.5 PH (5.0-7.5); PROTEIN,URINE TRACE mg/dL (NEGATIVE); UROBILINOGEN,URINE 0.2 (NORMAL) E.U./dL (NORMAL)
[2018-10-03 13:20] LABS: CLARITY,URINE CLEAR (CLEAR)
--- NOTE | 2018-10-03 13:22 | CT Report ---
Reason: abd pain NV fever Procedure Date: 10/03/2018 Accession Number: [id number] / [id number] Procedure: CT - Abdomen/Pelvis W/O CPT Code: FULL RESULT: EXAM: CT ABDOMEN AND PELVIS EXAM DATE: 10/03/2018 12:58 PM. CLINICAL HISTORY: Abd pain NV fever. COMPARISONS: None. TECHNIQUE: Routine helical CT imaging was performed through the abdomen and pelvis. IV contrast: No. Enteric contrast: No. Reconstructions: Coronal and sagittal. In accordance with CT protocol optimization, one or more of the following dose reduction techniques were utilized for this exam: automated exposure control, adjustment of mA and/or KV based on patient size, or use of iterative reconstructive technique. FINDINGS: Lung Bases: Unremarkable. Liver: Normal in size and contour. Gallbladder/Bile Ducts: The gallbladder is contracted. No calcified stones. Spleen: Normal in size. Pancreas: Normal in size and contour. Adrenal Glands: Normal. Kidneys: Normal. No masses or hydronephrosis. Peritoneal Cavity/Bowel: The small bowel and colon are normal in caliber. No transition zone or mechanical obstruction. No pneumatosis or free air. No free fluid or abscess. Pelvic Organs: Normal. The bladder and visualized pelvic organs are within normal limits. Vasculature: There is moderate diffuse calcification of the aorta and iliac arteries without aneurysm. Bones: There is scoliotic curvature of the lumbar spine apex to the left. No acute fracture. Other: None. IMPRESSION: 1. No dilated bowel or mechanical obstruction. 2. No localizing acute inflammatory process demonstrated. 3. Scoliosis. RADIA
[2018-10-03 13:23] LABS: BACTERIA,URINE None Seen /HPF (None Seen); RBC,URINE 0-5 /HPF (0-5); SQUAMOUS EPITHELIAL CELL,UR RARE Squamous (<= Few)
[2018-10-03 14:30] VITALS: BP 115/68
[2018-10-03] MEDS ORDERED: MAGNESIUM OXIDE 400 MG TABLET PO STA (14:49)
== END 2018-10-03 15:06 | disposition home or self-care (01) ==
LOC: EDUNIT# → EDBD → ED 12:29
DX: R10.84 Generalized abdominal pain (principal); N39.0 Urinary tract infection, site not specified; R79.81 Abnormal blood-gas level; R55 Syncope and collapse; R94.31 Abnormal electrocardiogram [ECG] [EKG]; I10 Essential (primary) hypertension; E11.9 Type 2 diabetes mellitus without complications; Z79.84 Long term (current) use of oral hypoglycemic drugs; E83.42 Hypomagnesemia
CPT/HCPCS: 36415; 74176; 80053; 81001; 83690; 83735; 85025; 87086; 93005; 96360; 99283; A9270; 81003

== ENCOUNTER 2018-11-13 09:17 | Outpatient (CLI) | payer MEDICARE, OTHER ==
[2018-11-13 09:42] LABS: CALCIUM 9.4 mg/dL (8.5-10.3); CREATININE 0.6 mg/dL (0.4-1.0)
== END 2018-11-13 09:18 | disposition home or self-care (01) ==
LOC: LAB 09:17
PROVIDERS: ATTEND Nurse Practitioner
DX: E87.6 Hypokalemia (principal)
CPT/HCPCS: 36415; 80048

== ENCOUNTER 2018-12-27 14:06 | Outpatient (CLI) | payer MEDICARE, OTHER | END 2018-12-27 14:07 | disposition home or self-care (01) | LOC: LAB 14:06 | PROVIDERS: ATTEND Internal Medicine Nephrology | DX: I15.9 Secondary hypertension, unspecified (principal) ==

== ENCOUNTER 2019-01-28 14:24 | Outpatient (CLI) | payer MEDICARE, OTHER ==
[2019-01-28 15:14] LABS: BASOPHILS % (AUTO) 0.6 %; EOSINOPHILS # (AUTO) 0.3 10^3/uL (0.0-0.7); EOSINOPHILS % (AUTO) 4.3 %; HGB - HEMOGLOBIN 13.5 g/dL (12.0-16.0); LYMPHOCYTES # (AUTO) 2.3 10^3/uL (1.5-3.5); LYMPHOCYTES % (AUTO) 30.6 %; MEAN CORPUSCULAR HEMOGLOBIN 33.6 pg (27.0-31.0); MEAN CORPUSCULAR HGB CONC 33.6 g/dL (32.0-36.0); MEAN CORPUSCULAR VOLUME 100.1 fL (81.0-99.0); MEAN PLATELET VOLUME 9.2 fL (7.9-10.8); MONOCYTES # (AUTO) 0.8 10^3/uL (0.0-1.0); MONOCYTES % (AUTO) 10.9 %; NEUTROPHILS % (AUTO) 53.6 %; PLT - PLATELET COUNT 199 10^3/uL (130-450); RED BLOOD COUNT 4.01 10^6/uL (4.20-5.40); WHITE BLOOD COUNT 7.4 x10^3/uL (4.8-10.8)
== END 2019-01-28 14:25 | disposition home or self-care (01) ==
LOC: LAB 14:24
PROVIDERS: ATTEND Nurse Practitioner Gerontology
DX: D75.89 Other specified diseases of blood and blood-forming organs (principal)
CPT/HCPCS: 36415; 85025

== ENCOUNTER 2019-02-28 10:18 | Outpatient (CLI) | payer MEDICARE, OTHER ==
[2019-02-28 10:40] LABS: BASOPHILS % (AUTO) 0.8 %; EOSINOPHILS # (AUTO) 0.2 10^3/uL (0.0-0.7); EOSINOPHILS % (AUTO) 3.3 %; HGB - HEMOGLOBIN 13.4 g/dL (12.0-16.0); LYMPHOCYTES # (AUTO) 1.9 10^3/uL (1.5-3.5); LYMPHOCYTES % (AUTO) 34.7 %; MEAN CORPUSCULAR HEMOGLOBIN 33.9 pg (27.0-31.0); MEAN CORPUSCULAR HGB CONC 34.1 g/dL (32.0-36.0); MEAN CORPUSCULAR VOLUME 99.3 fL (81.0-99.0); MEAN PLATELET VOLUME 9.3 fL (7.9-10.8); MONOCYTES # (AUTO) 0.5 10^3/uL (0.0-1.0); NEUTROPHILS # (AUTO) 2.8 10^3/uL (1.5-6.6); NEUTROPHILS % (AUTO) 51.2 %; PLT - PLATELET COUNT 196 10^3/uL (130-450); RED BLOOD COUNT 3.96 10^6/uL (4.20-5.40); RED CELL DISTRIBUTION WIDTH 13.4 % (12.0-15.0); WHITE BLOOD COUNT 5.4 x10^3/uL (4.8-10.8)
[2019-02-28 11:02] LABS: HB2 TOTAL 14.5 g/dL; HEMOGLOBIN A1C 0.68 g/dL; HEMOGLOBIN A1C % 6.4 % (4.6-6.2)
== END 2019-02-28 10:19 | disposition home or self-care (01) ==
LOC: LAB 10:18
PROVIDERS: ATTEND Family Medicine
DX: D75.89 Other specified diseases of blood and blood-forming organs (principal); R63.4 Abnormal weight loss; R13.10 Dysphagia, unspecified; E11.22 Type 2 diabetes mellitus with diabetic chronic kidney disease; N18.2 Chronic kidney disease, stage 2 (mild); R74.8 Abnormal levels of other serum enzymes; I12.9 Hypertensive chronic kidney disease with stage 1 through stage 4 chronic kidney disease, or unspecified chronic kidney disease; R00.2 Palpitations
CPT/HCPCS: 36415; 83036; 84443; 85025; 85651; 86140; 86617

== ENCOUNTER 2019-06-23 08:39 | Outpatient (CLI) | payer MEDICARE, OTHER ==
[2019-06-23 09:07] LABS: ALBUMIN 3.5 g/dL (3.2-5.5); ALBUMIN/GLOBULIN RATIO 1.3 (1.0-2.2); ALKALINE PHOSPHATASE 63 IU/L (42-121); ALT ALANINE AMINOTRANSFERASE 44 IU/L (10-60); AST ASPARTATE AMINOTRANSFERASE 47 IU/L (10-42); BILIRUBIN,TOTAL 0.8 mg/dL (0.2-1.0); BUN - BLOOD UREA NITROGEN 10 mg/dL (6-20); CALCIUM 9.3 mg/dL (8.5-10.3); CARBON DIOXIDE - CO2 32 mmol/L (21-32); CHLORIDE 96 mmol/L (101-111); CHOL/HDL RATIO 1.9 (<4.4); CHOLESTEROL 171 mg/dL; CREATININE 0.5 mg/dL (0.4-1.0); GFR - MDRD 121 (>89); GLUCOSE 155 mg/dL (70-100); HDL CHOLESTEROL 88 mg/dL; LDL CHOLESTEROL,CALCULATED 68 mg/dL; LDL/HDL RATIO 0.8 (<4.4); MAGNESIUM 1.6 mg/dL (1.7-2.8); SODIUM 141 mmol/L (135-145); TOTAL PROTEIN 6.1 g/dL (6.7-8.2); VLDL CHOLESTEROL 15 mg/dL
== END 2019-06-23 08:40 | disposition home or self-care (01) ==
LOC: LAB 08:39
PROVIDERS: ATTEND Family Medicine
DX: E78.5 Hyperlipidemia, unspecified (principal); E83.42 Hypomagnesemia; R74.8 Abnormal levels of other serum enzymes
CPT/HCPCS: 36415; 80053; 80061; 83721; 83735

== ENCOUNTER 2019-06-24 15:42 | Outpatient (CLI) | payer MEDICARE, OTHER | END 2019-06-24 23:59 | disposition home or self-care (01) | LOC: LAB.R 15:42 | PROVIDERS: ATTEND Family Medicine | DX: R39.9 Unspecified symptoms and signs involving the genitourinary system (principal) | CPT/HCPCS: 87077; 87086; 87181 ==

== ENCOUNTER 2019-08-08 14:38 | Outpatient (CLI) | payer MEDICARE, OTHER ==
--- NOTE | 2019-08-08 17:33 | XRAY Report ---
Reason: R hip pain Procedure Date: 08/08/2019 Accession Number: [id number] / [id number] Procedure: XRN - Hip w/Pelvis 2-3V RT CPT Code: FULL RESULT: EXAM: RIGHT HIP RADIOGRAPHY EXAM DATE: 08/08/2019 03:22 PM. CLINICAL HISTORY: R hip pain. COMPARISON: LUMBAR SPINE COMPLETE 08/08/2019 3:08 PM ABDOMEN/PELVIS W/O 10/03/2018 12:52 PM. TECHNIQUE: 2 views. FINDINGS: Bones: Please see separate lumbar spine report. No fractures or bone lesion. Joints: Normal. No dislocation. The hip joint space is preserved. Soft Tissues: Normal. No soft tissue swelling. IMPRESSION: Negative hip radiography. RADIA
--- NOTE | 2019-08-08 18:01 | XRAY Report ---
Reason: lumbar radiculopathy Procedure Date: 08/08/2019 Accession Number: [id number] / [id number] Procedure: XRN - Lumbar Spine Complete CPT Code: FULL RESULT: EXAM: LUMBOSACRAL SPINE RADIOGRAPHY EXAM DATE: 08/08/2019 03:22 PM. CLINICAL HISTORY: Lumbar radiculopathy. COMPARISONS: ABDOMEN/PELVIS W/O 10/03/2018 12:52 PM. TECHNIQUE: 5 views. FINDINGS: Alignment: Stable L3 moderate levoscoliosis centered at the lower lumbar spine. Bones: Five [id number] lumbar vertebral bodies are present. No fractures or bone lesions. Degenerative changes: Moderate L5-S1 degenerative disk disease with disk height loss and subchondral sclerosis. Mild degenerative disk disease elsewhere throughout the lumbar spine. Soft Tissues: Atherosclerotic disease of the aorta. The visualized bowel gas pattern is normal. IMPRESSION: 1. Moderate degenerative disk disease at L5-S1. Lesser degenerative changes throughout the lumbar spine. 2. Degenerative disk changes accentuated by chronic levoscoliosis. RADIA
== END 2019-08-08 14:39 | disposition home or self-care (01) ==
LOC: DI.N 14:38
PROVIDERS: ATTEND Family Medicine
DX: M51.37 Other intervertebral disc degeneration, lumbosacral region (principal); M51.36 Other intervertebral disc degeneration, lumbar region; M41.9 Scoliosis, unspecified; M25.551 Pain in right hip
CPT/HCPCS: 72110

== ENCOUNTER 2021-01-31 12:23 | Outpatient (CLI) | payer MEDICARE, OTHER ==
[2021-01-31 12:50] LABS: BASOPHILS % (AUTO) 0.5 %; EOSINOPHILS # (AUTO) 0.1 10^3/uL (0.0-0.7); EOSINOPHILS % (AUTO) 2.1 %; HCT - HEMATOCRIT 46.7 % (37.0-47.0); HGB - HEMOGLOBIN 15.6 g/dL (12.0-16.0); LYMPHOCYTES # (AUTO) 2.2 10^3/uL (1.5-3.5); LYMPHOCYTES % (AUTO) 34.7 %; MEAN CORPUSCULAR HEMOGLOBIN 34.8 pg (27.0-31.0); MEAN CORPUSCULAR HGB CONC 33.4 g/dL (32.0-36.0); MEAN CORPUSCULAR VOLUME 104.2 fL (81.0-99.0); MEAN PLATELET VOLUME 11.5 fL (7.9-10.8); MONOCYTES # (AUTO) 0.7 10^3/uL (0.0-1.0); MONOCYTES % (AUTO) 11.2 %; NEUTROPHILS # (AUTO) 3.2 10^3/uL (1.5-6.6); NEUTROPHILS % (AUTO) 51.2 %; PLT - PLATELET COUNT 156 10^3/uL (130-450); RED BLOOD COUNT 4.48 10^6/uL (4.20-5.40); RED CELL DISTRIBUTION WIDTH 13.3 % (12.0-15.0); WHITE BLOOD COUNT 6.3 x10^3/uL (4.8-10.8)
[2021-01-31 13:08] LABS: CREATININE,URINE 143.3 mg/dL; MICROALBUM/CREATININE RATIO,UR 13.3 ug/mg (<30.0); MICROALBUMIN,URINE 1.9 mg/dL (0-300.0)
[2021-01-31 13:12] LABS: ALBUMIN 3.9 g/dL (3.2-5.5); ALBUMIN/GLOBULIN RATIO 1.3 (1.0-2.2); ALKALINE PHOSPHATASE 56 IU/L (42-121); ALT ALANINE AMINOTRANSFERASE 30 IU/L (10-60); AST ASPARTATE AMINOTRANSFERASE 43 IU/L (10-42); BILIRUBIN,TOTAL 1.2 mg/dL (0.2-1.0); BUN - BLOOD UREA NITROGEN 11 mg/dL (6-20); CALCIUM 9.4 mg/dL (8.5-10.3); CARBON DIOXIDE - CO2 30 mmol/L (21-32); CHLORIDE 97 mmol/L (101-111); CHOL/HDL RATIO 2.4 (<4.4); CHOLESTEROL 198 mg/dL; CREATININE 0.6 mg/dL (0.4-1.0); GFR - MDRD 98 (>89); GLUCOSE 139 mg/dL (70-100); HDL CHOLESTEROL 83 mg/dL; LDL CHOLESTEROL,CALCULATED 81 mg/dL; POTASSIUM 4.6 mmol/L (3.5-5.0); SODIUM 137 mmol/L (135-145); TOTAL PROTEIN 6.8 g/dL (6.7-8.2); TRIGLYCERIDES 172 mg/dL; VLDL CHOLESTEROL 34 mg/dL
[2021-01-31 13:20] LABS: THYROID STIMULATING HORMONE 2.73 uIU/mL (0.34-5.60)
[2021-01-31 20:52] LABS: ESTIMATED AVERAGE GLUCOSE 134 mg/dL (70-100); HEMOGLOBIN A1c% 6.3 % (4.27-6.07)
== END 2021-01-31 12:24 | disposition home or self-care (01) ==
LOC: LAB 12:23
PROVIDERS: ATTEND Family Medicine
DX: R74.8 Abnormal levels of other serum enzymes (principal); E11.9 Type 2 diabetes mellitus without complications
CPT/HCPCS: 36415; 80053; 80061; 82043; 82570; 83036; 83721; 84443; 85025

== ENCOUNTER 2021-08-11 15:16 | Outpatient (CLI) | payer MEDICARE ==
[2021-08-11 18:02] LABS: BASOPHILS % (AUTO) 0.7 %; EOSINOPHILS # (AUTO) 0.1 10^3/uL (0.0-0.7); EOSINOPHILS % (AUTO) 1.8 %; HCT - HEMATOCRIT 45.1 % (37.0-47.0); HGB - HEMOGLOBIN 14.3 g/dL (12.0-16.0); LYMPHOCYTES # (AUTO) 1.8 10^3/uL (1.5-3.5); LYMPHOCYTES % (AUTO) 31.8 %; MEAN CORPUSCULAR HEMOGLOBIN 34.3 pg (27.0-31.0); MEAN CORPUSCULAR HGB CONC 31.7 g/dL (32.0-36.0); MEAN CORPUSCULAR VOLUME 108.2 fL (81.0-99.0); MONOCYTES # (AUTO) 0.7 10^3/uL (0.0-1.0); MONOCYTES % (AUTO) 12.2 %; NEUTROPHILS % (AUTO) 53.1 %; PLT - PLATELET COUNT 163 10^3/uL (130-450); RED BLOOD COUNT 4.17 10^6/uL (4.20-5.40); RED CELL DISTRIBUTION WIDTH 13.8 % (12.0-15.0); WHITE BLOOD COUNT 5.7 x10^3/uL (4.8-10.8)
[2021-08-11 18:16] LABS: ALBUMIN 3.6 g/dL (3.2-5.5); ALBUMIN/GLOBULIN RATIO 1.3 (1.0-2.2); BILIRUBIN,TOTAL 0.7 mg/dL (0.2-1.0); CREATININE 0.7 mg/dL (0.4-1.0); POTASSIUM 3.9 mmol/L (3.5-5.0); TOTAL PROTEIN 6.4 g/dL (6.7-8.2)
[2021-08-11 18:22] LABS: PT - PROTHROMBIN TIME 10.7 secs (9.9-12.6)
== END 2021-08-11 15:17 | disposition home or self-care (01) ==
LOC: LAB.N 15:16
PROVIDERS: ATTEND Family Medicine
DX: R23.8 Other skin changes (principal)
CPT/HCPCS: 36415; 80053; 85025; 85610

== ENCOUNTER 2021-08-11 15:24 | Outpatient (CLI) | payer MEDICARE ==
--- NOTE | 2021-08-11 23:01 | XRAY Report ---
PROCEDURE: Shoulder 2 View BILAT INDICATIONS: BILATERAL SHOULDER PAIN TECHNIQUE: 2 views of the shoulder were acquired. COMPARISON: None. FINDINGS: Bones: No fractures or dislocations. No suspicious bony lesions. Visualized ribs appear intact. S evere bilateral acromioclavicular degenerative narrowing. Mild glenohumeral narrowing. There is sligh t inferior subluxation of the left shoulder at the glenohumeral joint space. Soft tissues: No suspicious soft tissue calcifications. IMPRESSION: Severe acromioclavicular degenerative narrowing. Reviewed by: Madison García MD on 08/11/2021 11:00 PM PDT Approved by: Madison García MD on 08/11/2021 11:00 PM PDT Station ID: [id number]
== END 2021-08-11 15:25 | disposition home or self-care (01) ==
LOC: DI.N 15:24
PROVIDERS: ATTEND Family Medicine
DX: R23.8 Other skin changes (principal); M19.012 Primary osteoarthritis, left shoulder; M19.011 Primary osteoarthritis, right shoulder
CPT/HCPCS: 36415; 80053; 85025; 85610

== ENCOUNTER 2021-08-16 03:10 | Outpatient (CLI) | payer MEDICARE | END 2021-08-16 23:59 | disposition home or self-care (01) | LOC: LAB 03:10 | PROVIDERS: ATTEND Family Medicine | DX: N39.0 Urinary tract infection, site not specified (principal) | CPT/HCPCS: 87086 ==

== ENCOUNTER 2022-06-20 15:02 | Outpatient (CLI) | payer MEDICARE ==
[2022-06-20 15:14] LABS: BASOPHILS % (AUTO) 0.5 %; EOSINOPHILS # (AUTO) 0.1 10^3/uL (0.0-0.7); EOSINOPHILS % (AUTO) 2.3 %; HCT - HEMATOCRIT 43.8 % (37.0-47.0); HGB - HEMOGLOBIN 14.4 g/dL (12.0-16.0); LYMPHOCYTES % (AUTO) 32.9 %; MEAN CORPUSCULAR HEMOGLOBIN 34.4 pg (27.0-31.0); MEAN CORPUSCULAR HGB CONC 32.9 g/dL (32.0-36.0); MEAN CORPUSCULAR VOLUME 104.8 fL (81.0-99.0); MEAN PLATELET VOLUME 10.6 fL (7.9-10.8); MONOCYTES # (AUTO) 0.7 10^3/uL (0.0-1.0); MONOCYTES % (AUTO) 11.7 %; NEUTROPHILS # (AUTO) 3.1 10^3/uL (1.5-6.6); NEUTROPHILS % (AUTO) 52.4 %; PLT - PLATELET COUNT 162 10^3/uL (130-450); RED BLOOD COUNT 4.18 10^6/uL (4.20-5.40); RED CELL DISTRIBUTION WIDTH 13.2 % (12.0-15.0)
[2022-06-20 15:33] LABS: ALBUMIN 3.6 g/dL (3.2-5.5); ALBUMIN/GLOBULIN RATIO 1.3 (1.0-2.2); ALKALINE PHOSPHATASE 57 IU/L (42-121); ALT ALANINE AMINOTRANSFERASE 25 IU/L (10-60); AST ASPARTATE AMINOTRANSFERASE 35 IU/L (10-42); BILIRUBIN,TOTAL 0.5 mg/dL (0.2-1.0); BUN - BLOOD UREA NITROGEN 12 mg/dL (6-20); CALCIUM 9.5 mg/dL (8.5-10.3); CARBON DIOXIDE - CO2 34 mmol/L (21-32); CHLORIDE 95 mmol/L (101-111); CHOL/HDL RATIO 2.5 (<4.4); CHOLESTEROL 183 mg/dL; CREATININE 0.5 mg/dL (0.4-1.0); GFR - MDRD 120 (>89); GLUCOSE 153 mg/dL (70-100); HDL CHOLESTEROL 74 mg/dL; LDL CHOLESTEROL,CALCULATED 96 mg/dL; LDL/HDL RATIO 1.3 (<4.4); POTASSIUM 4.3 mmol/L (3.5-5.0); SODIUM 138 mmol/L (135-145); TOTAL PROTEIN 6.3 g/dL (6.7-8.2); TRIGLYCERIDES 65 mg/dL; VLDL CHOLESTEROL 13 mg/dL
[2022-06-20 15:44] LABS: THYROID STIMULATING HORMONE 3.55 uIU/mL (0.34-5.60)
[2022-06-20 21:01] LABS: ESTIMATED AVERAGE GLUCOSE 146 mg/dL (70-100); HEMOGLOBIN A1c% 6.7 % (4.27-6.07)
== END 2022-06-20 15:03 | disposition home or self-care (01) ==
LOC: LAB 15:02
PROVIDERS: ATTEND Nurse Practitioner Family
DX: I10 Essential (primary) hypertension (principal); E78.5 Hyperlipidemia, unspecified; E55.9 Vitamin D deficiency, unspecified; E53.9 Vitamin B deficiency, unspecified; E11.9 Type 2 diabetes mellitus without complications
CPT/HCPCS: 36415; 80053; 80061; 82306; 82607; 82746; 83036; 83721; 84443; 85025

== ENCOUNTER 2023-04-04 12:28 | Outpatient (CLI) | payer MEDICARE ==
[2023-04-04 12:41] LABS: BASOPHILS % (AUTO) 0.6 %; EOSINOPHILS # (AUTO) 0.1 10^3/uL (0.0-0.7); EOSINOPHILS % (AUTO) 1.4 %; HCT - HEMATOCRIT 44.8 % (37.0-47.0); HGB - HEMOGLOBIN 14.5 g/dL (12.0-16.0); LYMPHOCYTES # (AUTO) 2.4 10^3/uL (1.5-3.5); LYMPHOCYTES % (AUTO) 33.9 %; MEAN CORPUSCULAR HEMOGLOBIN 34.2 pg (27.0-31.0); MEAN CORPUSCULAR HGB CONC 32.4 g/dL (32.0-36.0); MEAN CORPUSCULAR VOLUME 105.7 fL (81.0-99.0); MEAN PLATELET VOLUME 10.6 fL (7.9-10.8); MONOCYTES # (AUTO) 0.7 10^3/uL (0.0-1.0); MONOCYTES % (AUTO) 9.2 %; NEUTROPHILS # (AUTO) 3.9 10^3/uL (1.5-6.6); NEUTROPHILS % (AUTO) 54.8 %; PLT - PLATELET COUNT 144 10^3/uL (130-450); RED BLOOD COUNT 4.24 10^6/uL (4.20-5.40); RED CELL DISTRIBUTION WIDTH 13.3 % (12.0-15.0)
[2023-04-04 13:00] LABS: ALBUMIN 3.3 g/dL (3.2-5.5); ALBUMIN/GLOBULIN RATIO 1.2 (1.0-2.2); ALKALINE PHOSPHATASE 56 IU/L (42-121); ALT ALANINE AMINOTRANSFERASE 32 IU/L (10-60); AST ASPARTATE AMINOTRANSFERASE 41 IU/L (10-42); BILIRUBIN,TOTAL 0.7 mg/dL (0.2-1.0); BUN - BLOOD UREA NITROGEN 13 mg/dL (6-20); CALCIUM 9.1 mg/dL (8.5-10.3); CARBON DIOXIDE - CO2 35 mmol/L (21-32); CHLORIDE 95 mmol/L (101-111); CHOL/HDL RATIO 2.3 (<4.4); CHOLESTEROL 164 mg/dL; CREATININE 0.6 mg/dL (0.4-1.0); GFR - MDRD 97 (>89); GLUCOSE 165 mg/dL (70-100); HDL CHOLESTEROL 71 mg/dL; LDL CHOLESTEROL,CALCULATED 70 mg/dL; POTASSIUM 3.7 mmol/L (3.5-5.0); SODIUM 140 mmol/L (135-145); TOTAL PROTEIN 6.1 g/dL (6.7-8.2); TRIGLYCERIDES 115 mg/dL; VLDL CHOLESTEROL 23 mg/dL
[2023-04-04 13:01] LABS: ESTIMATED AVERAGE GLUCOSE 146 mg/dL (70-100); HEMOGLOBIN A1c% 6.7 % (4.27-6.07)
[2023-04-04 13:10] LABS: THYROID STIMULATING HORMONE 2.26 uIU/mL (0.34-5.60)
== END 2023-04-04 12:29 | disposition home or self-care (01) ==
LOC: LAB 12:28
PROVIDERS: ATTEND Nurse Practitioner Family
DX: R42 Dizziness and giddiness (principal); I10 Essential (primary) hypertension; E78.5 Hyperlipidemia, unspecified; E67.3 Hypervitaminosis D; E67.2 Megavitamin-B6 syndrome; E11.9 Type 2 diabetes mellitus without complications
CPT/HCPCS: 36415; 80053; 80061; 82306; 82607; 82746; 83036; 83721; 84443; 85025

== ENCOUNTER 2023-05-24 11:17 | Outpatient (CLI) | payer MEDICARE | END 2023-05-24 23:59 | disposition critical access hospital (66) | LOC: EMS 11:17 | DX: R41.0 Disorientation, unspecified (principal); R53.83 Other fatigue; R53.1 Weakness | CPT/HCPCS: A0425; A0429 ==

== ENCOUNTER 2023-05-24 11:25 | Emergency (ER) | payer MEDICARE ==
--- NOTE | 2023-05-24 11:53 | ED Physician Documentation ---
History of Present Illness - Stated complaint Stated Complaint: AMS - Chief complaint Chief Complaint: Neuro - Additonal information Additional information: 77-year-old female who has a past medical history most significant for diabetes and hypertension presents to the emergency department for evaluation of confusion that was noted about 10 AM. Per the patient's daughter at bedside her mom has occasionally been confused in the past but mostly when she has had either a urinary tract infection or hypokalemia. EMS noted that the patient could not tell them where she was or what the year was. She does not have any previous known history of TIA or CVA. She was normoglycemic for EMS. Here in the emergency department she is alert and tearful. She is able to tell me her name, birthdate and that she is at [facility]. She is unsure the month or the year. 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 However she does not have any new focal neurodeficits. Patient's daughter states that in the past 6 months she has noticed that her mom is starting to have some short-term memory changes. She states that her mom takes Ambien due to insomnia and believes she may also be taking lorazepam for anxiety. However her controls all her medications. No recent illness, fevers, cough, nausea, vomiting, abdominal pain or travel. No known falls or trauma. Review of Systems Constitutional: denies: Fever Nose: reports: Reviewed and negative Throat: reports: Reviewed and negative Cardiac: reports: Reviewed and negative Respiratory: reports: Reviewed and negative GI: reports: Reviewed and negative : reports: Reviewed and negative Skin: reports: Reviewed and negative Neurologic: reports: Confused. 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 - Present Medications Home Medications: Ambulatory Orders Medication Instructions Recorded Confirmed Zolpidem Tartrate [Ambien] 5 mg PO DAILY PM 05/15/18 05/24/23 atenoloL [Atenolol] 12.5 mg PO DAILY 05/15/18 05/24/23 Potassium Chloride 30 meq PO DAILY 10/03/18 05/24/23 LORazepam [Ativan] 0.5 mg PO PRN PRN 05/24/23 05/24/23 cephALEXin [Keflex] 500 mg PO BID #14 cap 05/24/23 - Allergies Allergies/Adverse Reactions: Allergies Allergy/AdvReac Type Severity Reaction Status Date / Time azithromycin [From Zithromax] Allergy Unknown Verified 10/03/18 15:02 - Social History Does the pt smoke?: No Smoking Status: Never smoker Does the pt drink ETOH?: Yes Does the pt have substance abuse?: No - Immunizations Immunizations are current?: No - POLST Patient has POLST: No PD ED PE NORMAL - General General: Alert and oriented X 3. No: No acute distress (Crying and tearful) - HEENT HEENT: PERRL - Neck Neck: Supple, no meningeal sign - Cardiac Cardiac: RRR, No murmur, No gallop - Respiratory Respiratory: No respiratory distress, Clear bilaterally - Abdomen Abdomen: Normal bowel sounds, Soft, Non tender - Derm Derm: Normal color, Warm and dry, No rash - Extremities Extremities: No deformity - Neuro Neuro: manager of clinical 2-12 intact, No sensory deficit, Normal speech. No: Alert and oriented X 3 (Alert to person and place only not to time), No motor deficit (At baseline mild left arm and leg weakness secondary to polio. This is unchanged) Eye Opening: Spontaneous Motor: Obeys Commands Verbal: Confused GCS Score: 14 Results - Vitals Vitals: Vital Signs - 24 hr 05/24/23 05/24/23 05/24/23 11:37 14:18 16:00 Temperature 37.2 C Heart Rate 72 86 82 Respiratory 18 18 18 Rate Blood Pressure 102/57 L 142/77 H 146/58 H O2 Saturation 96 97 96 Oxygen O2 Source Room air - EKG (time done) 1215 EKG releavant findings:: EKG personally interpreted by author of this note. Relevant findings are: Rate: Rate (enter#) (68) Rhythm: NSR [place]: Normal Intervals: Normal [place] QRS: Normal Ischemia: Normal ST segments Compare to prior EKG: Unchanged from prior EKG Computer interpretation: Agree with computer - Labs Labs: Laboratory Tests 05/24/23 05/24/23 05/24/23 11:52 11:52 11:53 WBC 5.3 RBC 4.33 Hgb 14.9 Hct 45.1 MCV 104.2 H MCH 34.4 H MCHC 33.0 RDW 13.4 Plt Count 144 MPV 10.7 Neut # (Auto) 3.0 Lymph # (Auto) 1.6 [place] # (Auto) 0.6 Eos # (Auto) 0.1 Baso # (Auto) 0.0 Absolute Nucleated RBC 0.00 Nucleated RBC % 0.0 PT 12.1 INR 1.1 Sodium 140 Potassium 3.9 Chloride 97 L Carbon Dioxide 32 Anion Gap 11.0 BUN 14 Creatinine 0.6 Estimated GFR (MDRD) 97 Glucose 144 H Calcium 9.0 Total Bilirubin 1.1 H AST 41 ALT 30 Alkaline Phosphatase 62 Total Protein 6.5 L Albumin 3.5 Globulin 3.0 Albumin/Globulin Ratio 1.2 Lipase 40 Urine Color Urine Clarity Urine pH Ur Specific [place] Urine Protein Urine Glucose (UA) Urine Ketones Urine Occult Blood Urine Nitrite Urine Bilirubin Urine Urobilinogen Ur Leukocyte Esterase Urine RBC Urine WBC Ur Squamous Epith Cells Urine Bacteria Urine Mucus Ur Microscopic Review Urine Culture Comments Urine Opiates Screen Ur Oxycodone Screen Urine Methadone Screen Ur Propoxyphene Screen Ur Barbiturates Screen Ur Tricyclics Screen Ur Phencyclidine Scrn Ur Amphetamine Screen U Methamphetamines Scrn U Benzodiazepines Scrn Urine Cocaine Screen U Cannabinoids Screen 05/24/23 12:09 WBC RBC Hgb Hct MCV MCH MCHC RDW Plt Count MPV Neut # (Auto) Lymph # (Auto) [place] # (Auto) Eos # (Auto) Baso # (Auto) Absolute Nucleated RBC Nucleated RBC % PT INR Sodium Potassium Chloride Carbon Dioxide Anion Gap BUN Creatinine Estimated GFR (MDRD) Glucose Calcium Total Bilirubin AST ALT Alkaline Phosphatase Total Protein Albumin Globulin Albumin/Globulin Ratio Lipase Urine Color DARK YELLOW Urine Clarity CLEAR Urine pH 5.5 Ur Specific [place] >=1.030 H Urine Protein 30 H Urine Glucose (UA) NEGATIVE Urine Ketones 40 H Urine Occult Blood NEGATIVE Urine Nitrite NEGATIVE Urine Bilirubin NEGATIVE Urine Urobilinogen 0.2 (NORMAL) Ur Leukocyte Esterase TRACE H Urine RBC 0-5 Urine WBC 6-10 H Ur Squamous Epith Cells FEW Squamous Urine Bacteria Rare Urine Mucus Few Strands Ur Microscopic Review INDICATED Urine Culture Comments INDICATED Urine Opiates Screen NEGATIVE Ur Oxycodone Screen NEGATIVE Urine Methadone Screen NEGATIVE Ur Propoxyphene Screen NEGATIVE Ur Barbiturates Screen NEGATIVE Ur Tricyclics Screen NEGATIVE Ur Phencyclidine Scrn NEGATIVE Ur Amphetamine Screen NEGATIVE U Methamphetamines Scrn NEGATIVE U Benzodiazepines Scrn POSITIVE H Urine Cocaine Screen NEGATIVE U Cannabinoids Screen NEGATIVE - Rads (name of study) ct head Relevant Findings:: Final report received (Age-related volume loss and mild to moderate small vessel ischemic change. No acute intracranial process.) MRI head Relevant Findings:: Final report received (No acute intracranial abnormality. Microvascular ischemic disease and age-related cerebral volume loss.) PD Medical Decision Making - ED course Complexity details: reviewed results, re-evaluated patient, considered differential, d/w patient ED course: 77-year-old female is brought to the emergency department for evaluation of sudden confusion that was noted about 10 AM this morning. Per daughter and the who ultimately came to the bedside they reported that she just did not seem to know where she was at though she had no focal neurodeficits. At baseline she does have some mild left-sided weakness due to a history of polio. Initially I did obtain CBC electrolytes and urinalysis. Per my interpretation there is suggestion of acute cystitis given nitrite positive urine. Subsequently there were no other abnormalities of worry on her labs. CT the head was unremarkable. Her family had reported that her memory changes have begun about 6 months ago but seemed acutely worse today and as such we did proceed to do an MRI as though felt unlikely a CVA was not ruled out though she certainly was not a candidate for TNK given that her NIHSS was only 2. Subsequently the MRI of the brain was completed and showed no acute intracranial abnormality. There is microvascular ischemic disease changes. As such I discussed with the patient and her at the bedside that I thought the symptoms of today and of over the last few months was likely age-related memory changes or even early dementia. They are advised close follow-up with her primary care provider. She may benefit from neurocognitive evaluation and/or consideration of donezepil or similar. The usual emergent return precautions for concerns of CVA or stroke were discuss ed. Departure - Departure Disposition: 01 Home, Self Care Clinical Impression: Confusion UTI (urinary tract infection) Qualifiers: Urinary tract infection type: acute cystitis Hematuria presence: without hematuria Qualified Code(s): N30.00 - Acute cystitis without hematuria Condition: Stable Record reviewed to determine appropriate education?: Yes Prescriptions: cephALEXin [Keflex] 500 mg PO BID #14 cap Comments: As discussed at the bedside today your labs were essentially normal though there is evidence of a urinary tract infection. A prescription for an antibiotic called cephalexin has been sent to the [facility] in [place]. The MRI completed of your brain today does not show signs that you are having a stroke. What I think this likely means is that you are developing age-related memory changes which can be a sign of early dementia. It is important you discuss this ED visit with your primary care provider. You may benefit from referral for neurocognitive evaluation and/or consideration to start medications which can sometimes be useful in memory changes. Please make this appointment with your primary care provider as soon as possible. NIHSS - Time Time: 11:50 - Level of Consciousness Level of consciousness: (0) Alert, Keenly responsive LOC Questions: (1) Answers one Q correctly LOC Commands: (0) Performs both correctly - Gaze Best Gaze: (0) Normal - Visual Visual: (0) No loss - Facial Palsy Facial Palsy: (0) Normal, symmetrical movement - Motor Arms (both separate) Motor Arm (right): (0) No drift Motor Arm (left): (1) Drift - Motor Legs (both separate) Motor Leg (right): (0) No drift Motor Leg (left): (1) Drift - Limb Ataxia Limb Ataxia: (0) Absent - Sensory Sensory: (0) Normal - Best Language Best Language: (0) No aphasia - Dysarthria Dysarthria: (0) Normal - Extinction and Inattention (formally neg Extinction and inattention: (0) No abnormality (At baseline patient has left arm and leg weakness secondary to polio in this reflex and the drift on the left side) - Total Score/Results Total Score/Result: 3
[2023-05-24] MEDS ORDERED: SODIUM CHLORIDE 0.9% 1,000 ML IV STA (11:59)
[2023-05-24 12:02] LABS: BASOPHILS % (AUTO) 0.6 %; EOSINOPHILS # (AUTO) 0.1 10^3/uL (0.0-0.7); EOSINOPHILS % (AUTO) 1.5 %; HCT - HEMATOCRIT 45.1 % (37.0-47.0); HGB - HEMOGLOBIN 14.9 g/dL (12.0-16.0); LYMPHOCYTES # (AUTO) 1.6 10^3/uL (1.5-3.5); LYMPHOCYTES % (AUTO) 30.2 %; MEAN CORPUSCULAR HEMOGLOBIN 34.4 pg (27.0-31.0); MEAN CORPUSCULAR VOLUME 104.2 fL (81.0-99.0); MEAN PLATELET VOLUME 10.7 fL (7.9-10.8); MONOCYTES # (AUTO) 0.6 10^3/uL (0.0-1.0); MONOCYTES % (AUTO) 10.6 %; NEUTROPHILS % (AUTO) 56.9 %; PLT - PLATELET COUNT 144 10^3/uL (130-450); RED BLOOD COUNT 4.33 10^6/uL (4.20-5.40); RED CELL DISTRIBUTION WIDTH 13.4 % (12.0-15.0); WHITE BLOOD COUNT 5.3 x10^3/uL (4.8-10.8)
[2023-05-24 12:09] LABS: INR 1.1 (0.8-1.2); PT - PROTHROMBIN TIME 12.1 secs (9.9-12.6)
[2023-05-24 12:12] LABS: ALBUMIN 3.5 g/dL (3.2-5.5); ALBUMIN/GLOBULIN RATIO 1.2 (1.0-2.2); BILIRUBIN,TOTAL 1.1 mg/dL (0.2-1.0); CREATININE 0.6 mg/dL (0.4-1.0); POTASSIUM 3.9 mmol/L (3.5-5.0); TOTAL PROTEIN 6.5 g/dL (6.7-8.2)
--- NOTE | 2023-05-24 12:12 | XRAY Report ---
PROCEDURE: Chest 1 View X-Ray INDICATIONS: ams TECHNIQUE: One view of the chest was acquired. COMPARISON: 05/15/2018 FINDINGS: Surgical changes and devices: None. Lungs and pleura: No pleural effusions or pneumothorax. Lungs are clear. Mediastinum: Mediastinal contours appear normal. Mild cardiomegaly. Bones and chest wall: No suspicious bony lesions. Overlying soft tissues appear unremarkable. S-s haped thoracolumbar curvature. IMPRESSION: Mild cardiomegaly. No acute pulmonary process. Reviewed by: Isra Wolf MD on 05/24/2023 12:11 PM PDT Approved by: Isra Wolf MD on 05/24/2023 12:11 PM PDT Station ID: [id number]
[2023-05-24 12:13] LABS: MUDS CUTOFF CONCENTRATIONS CUTOFF CONC BELOW:
[2023-05-24 12:19] LABS: BILIRUBIN,URINE NEGATIVE (NEGATIVE); CLARITY,URINE CLEAR (CLEAR); GLUCOSE, URINE (UA) NEGATIVE (NEGATIVE); KETONES,URINE (UA) 40 mg/dL (NEGATIVE); LEUKOCYTE ESTERASE, URINE TRACE (NEGATIVE); NITRITE,URINE NEGATIVE (NEGATIVE); OCCULT BLOOD,URINE NEGATIVE (NEGATIVE); PH,URINE 5.5 PH (5.0-7.5); PROTEIN,URINE 30 mg/dL (NEGATIVE); UROBILINOGEN,URINE 0.2 (NORMAL) E.U./dL (NORMAL)
[2023-05-24 12:32] LABS: AMPHETAMINE SCREEN,URINE NEGATIVE (NEGATIVE); BARBITURATE SCREEN,UR NEGATIVE (NEGATIVE); BENZODIAZEPINES SCREEN, URINE POSITIVE (NEGATIVE); COCAINE SCREEN URINE NEGATIVE (NEGATIVE); METHADONE SCREEN, URINE NEGATIVE (NEGATIVE); METHAMPHETAMINES SCREEN, URINE NEGATIVE (NEGATIVE); OPIATE SCREEN, URINE NEGATIVE (NEGATIVE); OXYCODONE SCREEN, URINE NEGATIVE (NEGATIVE); PROPOXYPHENE SCREEN, URINE NEGATIVE (NEGATIVE); THC CANNABINOID SCREEN, URINE NEGATIVE (NEGATIVE); TRICYCLIC ANTIDEPRESSANT,URINE NEGATIVE (NEGATIVE)
[2023-05-24 12:34] LABS: BACTERIA,URINE Rare /HPF (None Seen); MUCUS,URINE Few Strands; RBC,URINE 0-5 /HPF (0-5); SQUAMOUS EPITHELIAL CELL,UR FEW Squamous (<= Few)
--- NOTE | 2023-05-24 12:47 | CT Report ---
PROCEDURE: HEAD WO INDICATIONS: confusion TECHNIQUE: Noncontrast 4.5 mm thick angled axial sections acquired from the foramen magnum to the vertex. For r adiation dose reduction, the following was used: automated exposure control, adjustment of mA and/or kV according to patient size. COMPARISON: None. FINDINGS: Image quality: Excellent. CSF spaces: Basal cisterns are patent. No extra-axial fluid collections. Ventricles are normal in size and shape. Brain: No midline shift. No intracranial masses or hemorrhage. Gonzalez-white matter interface is norm al. Age-related volume loss and mild to moderate small vessel change. Intracranial carotid calcifica tions. Skull and face: Calvarium and visualized facial bones are intact, without suspicious lesions. Sinuses: Visualized sinuses and mastoids are clear. IMPRESSION: 1. Age-related volume loss and mild to moderate small vessel ischemic change. 2. No acute intracranial process. Reviewed by: Isra Wolf MD on 05/24/2023 12:46 PM PDT Approved by: Isra Wolf MD on 05/24/2023 12:46 PM PDT Station ID: [id number]
[2023-05-24] MEDS ORDERED: cefTRIAXone 1 GM VIAL IVP STA (13:02)
[2023-05-24] MEDS ORDERED: cefTRIAXone 1 GM in SODIUM CHLORIDE 0.9% MINIBAG 100 ML IV STA (13:07)
[2023-05-24] MEDS ORDERED: ACETAMINOPHEN 325 MG TABLET PO STA (13:33)
--- NOTE | 2023-05-24 17:51 | MRI Report ---
PROCEDURE: BRAIN WO INDICATIONS: confusion TECHNIQUE: Noncontrast axial T1 spin echo, axial T2 fast spin echo, sagittal and axial FLAIR, coronal T2 fast sp in echo, axial gradient echo, axial diffusion and ADC through the brain. COMPARISON: None. FINDINGS: Image quality: Excellent. CSF Spaces: Basal cisterns are patent. No extra-axial fluid collections. Ventricles are normal in size and shape. Brain: No intracranial masses or hemorrhage. Gonzalez/white matter interface is normal. Brainstem appe ars normal. Diffusion-weighted images demonstrate no acute ischemic insult. No chronic ischemic ins ults. Normal intravascular flow voids are present. Subcortical and periventricular hypodensities ar e consistent with microvascular ischemic disease and age-related cerebral volume loss. Skull and face: Calvarium has normal marrow signal. Orbits appear normal. Sinuses: Sinuses and mastoids are clear. There is pneumatization of the lateral recesses of the sph enoid sinuses. IMPRESSION: 1. No acute intracranial abnormality. 2. 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 Reviewed by: Neri Camara on 05/24/2023 4:49 PM [facility] Approved by: Neri Camara on 05/24/2023 4:49 PM [facility] Station ID: [id number]
[2023-05-24 18:20] VITALS: BP 131/58
== END 2023-05-24 18:15 | disposition home or self-care (01) ==
LOC: EDUNIT# → ED 11:25
DX: N30.00 Acute cystitis without hematuria (principal); E11.9 Type 2 diabetes mellitus without complications; I10 Essential (primary) hypertension
CPT/HCPCS: 36415; 70450; 70551; 71045; 80053; 80306; 81001; 83690; 85025; 85610; 87086; 93005; 96365; 99284; A9270; 81003

== ENCOUNTER 2023-12-08 09:29 | Emergency (ER) | payer OTHER, MEDICARE ==
[2023-12-08] MEDS ORDERED: ONDANSETRON 4 MG/2 ML VIAL IVP STA (09:34)
--- NOTE | 2023-12-08 09:34 | ED Physician Documentation ---
History of Present Illness - Stated complaint Stated Complaint: POSS OVERDOSE - History obtained from History obtained from: Patient, EMS - Additonal information Additional information: 78-year-old female with history of dementia, hypertension presents by EMS from home for feeling unwell. Patient told EMS that she thinks she may have accidentally overdosed on something like one of her meds, however EMS informed me that the patient's manages her medications. EMS states that en route patient told them she felt like she couldn't take a deep breath, but O2 saturations were stable. Vital signs unremarkable en route. On arrival patient stated she felt somewhat lightheaded, but was unable to characterize further. 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 - Present Medications Home Medications: Ambulatory Orders Medication Instructions Recorded Confirmed atenoloL [Atenolol] 25 mg PO DAILY 05/15/18 12/08/23 Potassium Chloride 30 meq PO DAILY 10/03/18 12/08/23 Donepezil [Aricept] 10 mg PO DAILY 12/08/23 12/08/23 - Allergies Allergies/Adverse Reactions: Allergies Allergy/AdvReac Type Severity Reaction Status Date / Time azithromycin [From Zithromax] Allergy Unknown Verified 12/08/23 09:32 - Social History Does the pt smoke?: No Smoking Status: Never smoker Does the pt drink ETOH?: Yes Does the pt have substance abuse?: No - Immunizations Immunizations are current?: No - POLST Patient has POLST: No PD ED PE NORMAL - Vitals Vital signs reviewed: Yes - General General: No acute distress, Well developed/nourished, Other (AOx2) - Neck Neck: Supple, no meningeal sign - Cardiac Cardiac: RRR, Strong equal pulses - Respiratory Respiratory: No respiratory distress, Clear bilaterally - Abdomen Abdomen: Soft, Non tender, Non distended - Derm Derm: Normal color, Warm and dry, No rash - Extremities Extremities: No deformity, No tenderness to palpate, Normal ROM s pain, No edema - Neuro Neuro: Alert and oriented X 3, 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 Relevant findings are: Rate: Rate (enter#) (45) Rhythm: Sinus bradycardia Is[place]: Normal Intervals: Normal ME QRS: Normal Ischemia: Normal ST segments - Labs Labs: Laboratory Tests 12/08/23 12/08/23 12/08/23 09:45 09:45 11:05 WBC 5.4 RBC 4.08 L Hgb 14.4 Hct 43.4 MCV 106.4 H MCH 35.3 H MCHC 33.2 RDW 13.7 Plt Count 147 MPV 11.5 H Neut # (Auto) 3.3 Lymph # (Auto) 1.5 [place] # (Auto) 0.5 Eos # (Auto) 0.0 Baso # (Auto) 0.0 Absolute Nucleated RBC 0.00 Nucleated RBC % 0.0 Sodium 141 Potassium 3.4 L Chloride 96 L Carbon Dioxide 34 H Anion Gap 11.0 BUN 9 Creatinine 0.5 L Estimated GFR (MDRD) 120 Glucose 165 H Calcium 9.2 Total Bilirubin 0.6 AST 34 ALT 29 Alkaline Phosphatase 61 Total Protein 6.0 L Albumin 3.5 Globulin 2.5 Albumin/Globulin Ratio 1.4 Lipase 52 Urine Color DARK YELLOW Urine Clarity CLEAR Urine pH 6.0 Ur Specific [place] >=1.030 H Urine Protein 100 H Urine Glucose (UA) NEGATIVE Urine Ketones >=80 H Urine Occult Blood NEGATIVE Urine Nitrite NEGATIVE Urine Bilirubin NEGATIVE Urine Urobilinogen 0.2 (NORMAL) Ur Leukocyte Esterase NEGATIVE Urine RBC 0-5 Urine WBC 0-3 Ur Squamous Epith Cells FEW Squamous Urine Bacteria Few Ur Microscopic Review INDICATED Urine Culture Comments NOT INDICATED PD Medical Decision Making - ED course Complexity details: reviewed old records, reviewed results, re-evaluated patient, considered differential, d/w patient ED course: Patient brought in by EMS for feeling unwell, patient cannot identify any specific symptoms. Vital signs unremarkable, no physical exam abnormalities. Will order labs, chest x-ray, urinalysis. Labs/imaging unremarkable. Patient resting comfortably in ED bed. Patient and informed of results and are comfortable going home. Of note, patient's heart rate 40s-50s, patient's states that this is normal for her. Recommended close PCP follow up. Departure - Departure Disposition: 01 Home, Self Care Clinical Impression: Lightheaded Condition: Stable Instructions: ED Weakness [facility] Forms: PCP List Discharge Date/Time: 12/08/23 11:57
[2023-12-08 10:01] LABS: BASOPHILS % (AUTO) 0.4 %; EOSINOPHILS % (AUTO) 0.7 %; HCT - HEMATOCRIT 43.4 % (37.0-47.0); HGB - HEMOGLOBIN 14.4 g/dL (12.0-16.0); LYMPHOCYTES # (AUTO) 1.5 10^3/uL (1.5-3.5); LYMPHOCYTES % (AUTO) 28.2 %; MEAN CORPUSCULAR HEMOGLOBIN 35.3 pg (27.0-31.0); MEAN CORPUSCULAR HGB CONC 33.2 g/dL (32.0-36.0); MEAN CORPUSCULAR VOLUME 106.4 fL (81.0-99.0); MEAN PLATELET VOLUME 11.5 fL (7.9-10.8); MONOCYTES # (AUTO) 0.5 10^3/uL (0.0-1.0); MONOCYTES % (AUTO) 9.1 %; NEUTROPHILS # (AUTO) 3.3 10^3/uL (1.5-6.6); NEUTROPHILS % (AUTO) 61.6 %; PLT - PLATELET COUNT 147 10^3/uL (130-450); RED BLOOD COUNT 4.08 10^6/uL (4.20-5.40); RED CELL DISTRIBUTION WIDTH 13.7 % (12.0-15.0); WHITE BLOOD COUNT 5.4 x10^3/uL (4.8-10.8)
[2023-12-08 10:14] LABS: ALBUMIN 3.5 g/dL (3.2-5.5); ALBUMIN/GLOBULIN RATIO 1.4 (1.0-2.2); BILIRUBIN,TOTAL 0.6 mg/dL (0.2-1.0); CALCIUM 9.2 mg/dL (8.5-10.3); CREATININE 0.5 mg/dL (0.6-1.3); POTASSIUM 3.4 mmol/L (3.5-4.5)
--- NOTE | 2023-12-08 10:25 | XRAY Report ---
PROCEDURE: Chest 1V INDICATIONS: "I FEEL LIKE I CAN'T BREATHE RIGHT" TECHNIQUE: One view of the chest was acquired. COMPARISON: May 24, 2023 FINDINGS: Surgical changes and devices: None. Lungs and pleura: No pleural effusions or pneumothorax. Lungs are clear. Hyperexpanded lung volum es. Mediastinum: Mediastinal contours appear normal. Heart size is normal. Bones and chest wall: No suspicious bony lesions. Overlying soft tissues appear unremarkable. Ser pentine curvature of the thoracic spine. Marginal osteophytes. IMPRESSION: No acute cardiopulmonary process. Reviewed by: Hi Ralph MD on 12/08/2023 9:24 AM [facility] Approved by: Hi Ralph MD on 12/08/2023 9:24 AM [facility] Station ID: [id number]
[2023-12-08 11:23] LABS: BILIRUBIN,URINE NEGATIVE (NEGATIVE); GLUCOSE, URINE (UA) NEGATIVE (NEGATIVE); KETONES,URINE (UA) >=80 mg/dL (NEGATIVE); LEUKOCYTE ESTERASE, URINE NEGATIVE (NEGATIVE); NITRITE,URINE NEGATIVE (NEGATIVE); OCCULT BLOOD,URINE NEGATIVE (NEGATIVE); PROTEIN,URINE 100 mg/dL (NEGATIVE); UROBILINOGEN,URINE 0.2 (NORMAL) E.U./dL (NORMAL)
[2023-12-08 11:38] LABS: CLARITY,URINE CLEAR (CLEAR)
[2023-12-08 11:50] LABS: BACTERIA,URINE Few /HPF (None Seen); RBC,URINE 0-5 /HPF (0-5); SQUAMOUS EPITHELIAL CELL,UR FEW Squamous (<= Few); WBC,URINE 0-3 /HPF (0-5)
[2023-12-08 11:55] VITALS: BP 109/66; O2SAT 97
== END 2023-12-08 11:57 | disposition home or self-care (01) ==
LOC: EDUNIT# → EDSEX → ED 09:29
DX: R42 Dizziness and giddiness (principal)
CPT/HCPCS: 36415; 80053; 81001; 81003; 83690; 85025; 87086; 93005; 96374; 99283

== ENCOUNTER 2024-02-06 18:07 | Outpatient (CLI) | payer MEDICARE, OTHER | END 2024-02-06 18:08 | disposition critical access hospital (66) | LOC: EMS 18:07 | DX: R53.1 Weakness (principal); R42 Dizziness and giddiness; R55 Syncope and collapse; R11.0 Nausea | CPT/HCPCS: A0425; A0427 ==

== ENCOUNTER 2024-02-06 18:16 | Emergency (ER) | payer MEDICARE, OTHER ==
--- NOTE | 2024-02-06 18:24 | ED Physician Documentation ---
PD HPI SYNCOPE - Stated complaint Stated Complaint: SYNCOPE - History obtained from History obtained from: Patient, EMS - Additional information Additional information: She has a history of A-fib, cognitive decline, polio as a child necessitating 8 months and iron, diabetes and hypertension. Reportedly has been "under the weather" for the last few days with poor oral intake. She denies cough, urinary complaints, fevers or chills. Today she was getting up to go to the bathroom and reportedly got very weak and did not quite syncopized but was helped to the ground by her . History is somewhat limited by cognitive decline and much of the history is from EMS. Her is not present on initial evaluation but they tell me he is on the way to the hospital. PD PAST MEDICAL HISTORY - Past Medical History Cardiovascular: Hypertension Respiratory: None Neuro: Dementia Endocrine/Autoimmune: Type 2 diabetes Derm: None - Past Surgical History Past Surgical History: Yes /BUNDLE TIER: Hysterectomy, Mastectomy - Present Medications Home Medications: Ambulatory Orders Medication Instructions Recorded Confirmed atenoloL [Atenolol] 25 mg PO DAILY 05/15/18 02/06/24 Donepezil [Aricept] 10 mg PO DAILY 12/08/23 02/06/24 Aspirin Chewable [[place] 1 tab PO DAILY 02/06/24 02/06/24 Aspirin] - Allergies Allergies/Adverse Reactions: Allergies Allergy/AdvReac Type Severity Reaction Status Date / Time azithromycin [From Zithromax] Allergy Unknown Verified 02/06/24 19:08 - Social History Does the pt smoke?: No Smoking Status: Never smoker Does the pt drink ETOH?: Yes Does the pt have substance abuse?: No - Immunizations Immunizations are current?: No - POLST Patient has POLST: No PD ED PE NORMAL - Vitals Vital signs reviewed: Yes - General General: Other (She is alert and oriented to person and place but not time or events) - HEENT HEENT: PERRL, EOMI, Other (Dry mucous membranes) - Neck Neck: Supple, no meningeal sign, No bony TTP - Cardiac Cardiac: Other (Rapid A-fib without murmur) - Respiratory Respiratory: No respiratory distress, Clear bilaterally - Abdomen Abdomen: Non tender - Extremities Extremities: No edema - Neuro Neuro: No motor deficit, No sensory deficit Eye Opening: Spontaneous Motor: Obeys Commands Verbal: Confused GCS Score: 14 - Psych Psych: Normal mood Results - Vitals Vitals: Vital Signs - 24 hr 02/06/24 02/06/24 02/06/24 18:25 21:25 22:25 Temperature 36.1 C L Heart Rate 117 H 62 Respiratory 16 18 Rate Blood Pressure 141/83 H 140/69 H O2 Saturation 89 L 100 85 L If not protocol 2 : Oxygen Flow, liters/minute 02/06/24 02/07/24 02/07/24 23:00 01:00 03:00 Temperature Heart Rate 63 63 61 Respiratory 20 18 14 Rate Blood Pressure 140/67 H 160/94 H 117/60 O2 Saturation 99 98 95 If not protocol 2 2 : Oxygen Flow, liters/minute 02/07/24 02/07/24 05:49 07:48 Temperature Heart Rate 57 L 62 Respiratory 18 94 H Rate Blood Pressure 158/67 H 145/90 H O2 Saturation 95 If not protocol 2 2 : Oxygen Flow, liters/minute Oxygen O2 Source Nasal cannula - EKG (time done) 1859 EKG releavant findings:: EKG personally interpreted by author of this note. Relevant findings are: Rate: Rate (enter#) (88) Rhythm: Atrial fibrillation (w 1 pvc) [place]: Normal Intervals: Prolonged QT QRS: Normal Ischemia: Normal ST segments, T wave inversion (v1-v2) Computer interpretation: Agree with computer - Labs Labs: Laboratory Tests 02/06/24 02/06/24 02/06/24 18:48 18:48 18:48 WBC 5.1 RBC 4.38 Hgb 15.0 Hct 47.5 H MCV 108.4 H MCH 34.2 H MCHC 31.6 L RDW 13.3 Plt Count 242 MPV 11.1 H Neut # (Auto) 3.6 Lymph # (Auto) 1.0 L [place] # (Auto) 0.5 Eos # (Auto) 0.0 Baso # (Auto) 0.0 Absolute Nucleated RBC 0.00 Nucleated RBC % 0.0 Sodium 145 Potassium 2.7 L Chloride 93 L Carbon Dioxide 41 H* Anion Gap 11.0 BUN 14 Creatinine 0.5 L Estimated GFR (MDRD) 120 Glucose 175 H Lactic Acid Calcium 9.8 Magnesium 1.1 L Total Bilirubin 1.0 AST 26 ALT 16 Alkaline Phosphatase 67 Troponin I High Sens 26.3 H* Total Protein 6.5 Albumin 3.9 Globulin 2.6 Albumin/Globulin Ratio 1.5 TSH 2.34 Urine Color Urine Clarity Urine pH Ur Specific [place] Urine Protein Urine Glucose (UA) Urine Ketones Urine Occult Blood Urine Nitrite Urine Bilirubin Urine Urobilinogen Ur Leukocyte Esterase Urine RBC Urine WBC Ur Squamous Epith Cells Urine Bacteria Urine Casts Ur Microscopic Review Urine Culture Comments Nasal Adenovirus (PCR) Nasal B. parapertussis DNA (PCR) Nasal Coronavir 229E PCR Nasal Coronavir HKU1 PCR Nasal Coronavir NL63 PCR Nasal Coronavir OC43 PCR Nasal Enterovir/Rhinovir PCR Nasal Influenza B PCR Nasal Influenza A PCR Nasal Parainfluen 1 PCR Nasal Parainfluen 2 PCR Nasal Parainfluen 3 PCR Nasal Parainfluen 4 PCR Nasal RSV (PCR) Nasal B.pertussis DNA PCR Nasal C.pneumoniae (PCR) Nikolay Human Metapneumo PCR Nasal M.pneumoniae (PCR) Nasal SARS-CoV-2 (PCR) 02/06/24 02/06/24 02/06/24 18:48 18:54 19:18 WBC RBC Hgb Hct MCV MCH MCHC RDW Plt Count MPV Neut # (Auto) Lymph # (Auto) [place] # (Auto) Eos # (Auto) Baso # (Auto) Absolute Nucleated RBC Nucleated RBC % Sodium Potassium Chloride Carbon Dioxide Anion Gap BUN Creatinine Estimated GFR (MDRD) Glucose Lactic Acid 2.1 Calcium Magnesium Total Bilirubin AST ALT Alkaline Phosphatase Troponin I High Sens Total Protein Albumin Globulin Albumin/Globulin Ratio TSH Urine Color YELLOW Urine Clarity CLEAR Urine pH 6.5 Ur Specific [place] 1.025 Urine Protein 30 H Urine Glucose (UA) NEGATIVE Urine Ketones 15 H Urine Occult Blood NEGATIVE Urine Nitrite NEGATIVE Urine Bilirubin NEGATIVE Urine Urobilinogen 0.2 (NORMAL) Ur Leukocyte Esterase NEGATIVE Urine RBC 0-5 Urine WBC 4-5 Ur Squamous Epith Cells MOD Squamous H Urine Bacteria Few Urine Casts 0-2 Granular Casts Ur Microscopic Review INDICATED Urine Culture Comments NOT INDICATED Nasal Adenovirus (PCR) NOT DETECTED Nasal B. parapertussis DNA (PCR) NOT DETECTED Nasal Coronavir 229E PCR NOT DETECTED Nasal Coronavir HKU1 PCR NOT DETECTED Nasal Coronavir NL63 PCR NOT DETECTED Nasal Coronavir OC43 PCR NOT DETECTED Nasal Enterovir/Rhinovir PCR NOT DETECTED Nasal Influenza B PCR NOT DETECTED Nasal Influenza A PCR NOT DETECTED Nasal Parainfluen 1 PCR NOT DETECTED Nasal Parainfluen 2 PCR NOT DETECTED Nasal Parainfluen 3 PCR NOT DETECTED Nasal Parainfluen 4 PCR NOT DETECTED Nasal RSV (PCR) NOT DETECTED Nasal B.pertussis DNA PCR NOT DETECTED Nasal C.pneumoniae (PCR) NOT DETECTED Nikolay Human Metapneumo PCR NOT DETECTED Nasal M.pneumoniae (PCR) NOT DETECTED Nasal SARS-CoV-2 (PCR) NOT DETECTED 02/06/24 02/07/24 02/07/24 20:32 06:20 06:20 WBC 6.7 RBC 3.69 L Hgb 12.6 Hct 40.6 MCV 110.0 H MCH 34.1 H MCHC 31.0 L RDW 13.6 Plt Count 188 MPV 11.1 H Neut # (Auto) 4.4 Lymph # (Auto) 1.4 L [place] # (Auto) 0.9 Eos # (Auto) 0.0 Baso # (Auto) 0.0 Absolute Nucleated RBC 0.00 Nucleated RBC % 0.0 Sodium 143 Potassium 3.9 Chloride 100 L Carbon Dioxide 42 H* Anion Gap 1.0 L BUN 10 Creatinine 0.4 L Estimated GFR (MDRD) 155 Glucose 111 H Lactic Acid Calcium 9.0 Magnesium Total Bilirubin AST ALT Alkaline Phosphatase Troponin I High Sens 60.4 H* Total Protein Albumin Globulin Albumin/Globulin Ratio TSH Urine Color Urine Clarity Urine pH Ur Specific [place] Urine Protein Urine Glucose (UA) Urine Ketones Urine Occult Blood Urine Nitrite Urine Bilirubin Urine Urobilinogen Ur Leukocyte Esterase Urine RBC Urine WBC Ur Squamous Epith Cells Urine Bacteria Urine Casts Ur Microscopic Review Urine Culture Comments Nasal Adenovirus (PCR) Nasal B. parapertussis DNA (PCR) Nasal Coronavir 229E PCR Nasal Coronavir HKU1 PCR Nasal Coronavir NL63 PCR Nasal Coronavir OC43 PCR Nasal Enterovir/Rhinovir PCR Nasal Influenza B PCR Nasal Influenza A PCR Nasal Parainfluen 1 PCR Nasal Parainfluen 2 PCR Nasal Parainfluen 3 PCR Nasal Parainfluen 4 PCR Nasal RSV (PCR) Nasal B.pertussis DNA PCR Nasal C.pneumoniae (PCR) Nikolay Human Metapneumo PCR Nasal M.pneumoniae (PCR) Nasal SARS-CoV-2 (PCR) 02/07/24 06:20 WBC RBC Hgb Hct MCV MCH MCHC RDW Plt Count MPV Neut # (Auto) Lymph # (Auto) [place] # (Auto) Eos # (Auto) Baso # (Auto) Absolute Nucleated RBC Nucleated RBC % Sodium Potassium Chloride Carbon Dioxide Anion Gap BUN Creatinine Estimated GFR (MDRD) Glucose Lactic Acid Calcium Magnesium Total Bilirubin AST ALT Alkaline Phosphatase Troponin I High Sens 63.6 H* Total Protein Albumin Globulin Albumin/Globulin Ratio TSH Urine Color Urine Clarity Urine pH Ur Specific [place] Urine Protein Urine Glucose (UA) Urine Ketones Urine Occult Blood Urine Nitrite Urine Bilirubin Urine Urobilinogen Ur Leukocyte Esterase Urine RBC Urine WBC Ur Squamous Epith Cells Urine Bacteria Urine Casts Ur Microscopic Review Urine Culture Comments Nasal Adenovirus (PCR) Nasal B. parapertussis DNA (PCR) Nasal Coronavir 229E PCR Nasal Coronavir HKU1 PCR Nasal Coronavir NL63 PCR Nasal Coronavir OC43 PCR Nasal Enterovir/Rhinovir PCR Nasal Influenza B PCR Nasal Influenza A PCR Nasal Parainfluen 1 PCR Nasal Parainfluen 2 PCR Nasal Parainfluen 3 PCR Nasal Parainfluen 4 PCR Nasal RSV (PCR) Nasal B.pertussis DNA PCR Nasal C.pneumoniae (PCR) Nikolay Human Metapneumo PCR Nasal M.pneumoniae (PCR) Nasal SARS-CoV-2 (PCR) - Rads (name of study) Single view chest x-ray is unremarkable Relevant Findings:: Final report received, EMP independent interpretation of test PD Medical Decision Making - ED course ED course: This is a 78-year-old woman with dementia who presents with syncope. She also has comorbidities of hypertension and type 2 diabetes. Her supportive is at the bedside after the initial evaluation and initial workup demonstrated an EKG showing A-fib with occasional PVCs but no obvious ischemic findings and she was rate controlled. Subsequently she was noted to be modestly hypoxic into the high 80s. Her chest x-ray was clear and she had basically normal CBC, CMP noted for likely contraction alkalosis with hypokalemia and hypomagnesemia, and she was given both IV. Initial troponin was elevated at 26 albeit not alarmingly and this was repeated after 2 hours and it was significantly higher at 60.4. Her urinalysis was contaminated but otherwise unremarkable and a respiratory viral panel was negative. Given the unexplained hypoxemia she was also sent for CT pulmonary angiogram which was also negative. At that juncture I discussed with her that she may be having a mild heart attack and he would like to seek transfer for specialty consultation and we discussed what angiography was and her goals of care did not go against that. Initially [facility] was called for transfer, but they were full and could not accommodate her so the health pulling unit floorhand is calling around. Care to Dr Smith at 11pm shift chg pending xfer. Departure - Departure Disposition: 02 Transfer Acute Care Hosp Clinical Impression: NSTEMI (non-ST elevated myocardial infarction) Atrial fibrillation Qualifiers: Atrial fibrillation type: unspecified Qualified Code(s): I48.91 - Unspecified atrial fibrillation Dementia Qualifiers: Dementia type: unspecified type Dementia severity: moderate Dementia behavioral or psychological symptom: without behavioral, psychotic, or mood disturbance or anxiety Qualified Code(s): F03.B0 - Unspecified dementia, moderate, without behavioral disturbance, psychotic disturbance, mood disturbance, and anxiety Syncope Qualifiers: Syncope type: unspecified Qualified Code(s): R55 - Syncope and collapse Condition: Serious
[2024-02-06] MEDS: SODIUM CHLORIDE 0.9% 1,000 ML IV STA (18:47)
[2024-02-06 18:58] LABS: BASOPHILS % (AUTO) 0.6 %; EOSINOPHILS % (AUTO) 0.4 %; HCT - HEMATOCRIT 47.5 % (37.0-47.0); LYMPHOCYTES % (AUTO) 19.4 %; MEAN CORPUSCULAR HEMOGLOBIN 34.2 pg (27.0-31.0); MEAN CORPUSCULAR HGB CONC 31.6 g/dL (32.0-36.0); MEAN CORPUSCULAR VOLUME 108.4 fL (81.0-99.0); MEAN PLATELET VOLUME 11.1 fL (7.9-10.8); MONOCYTES # (AUTO) 0.5 10^3/uL (0.0-1.0); MONOCYTES % (AUTO) 8.9 %; NEUTROPHILS # (AUTO) 3.6 10^3/uL (1.5-6.6); NEUTROPHILS % (AUTO) 70.5 %; PLT - PLATELET COUNT 242 10^3/uL (130-450); RED BLOOD COUNT 4.38 10^6/uL (4.20-5.40); RED CELL DISTRIBUTION WIDTH 13.3 % (12.0-15.0); WHITE BLOOD COUNT 5.1 x10^3/uL (4.8-10.8)
[2024-02-06 19:09] LABS: MAGNESIUM 1.1 mg/dL (1.7-2.3)
--- NOTE | 2024-02-06 19:19 | XRAY Report ---
PROCEDURE: Chest 1V INDICATIONS: weakness TECHNIQUE: One view of the chest was acquired. COMPARISON: CXR 12/08/2023. FINDINGS: Surgical changes and devices: None. Lungs and pleura: No pleural effusions or pneumothorax. Lungs are clear. Mediastinum: Mediastinal contours appear normal. Heart size is normal. Bones and chest wall: No suspicious bony lesions. Scoliosis. Overlying soft tissues appear unremarka ble. IMPRESSION: No acute cardiopulmonary process. Reviewed by: Jhonathan Ahn MD on 02/06/2024 7:17 PM PDT Approved by: Jhonathan Ahn MD on 02/06/2024 7:17 PM PDT Station ID: [id number]
[2024-02-06 19:23] LABS: ALBUMIN 3.9 g/dL (3.2-5.5); ALBUMIN/GLOBULIN RATIO 1.5 (1.0-2.2); CALCIUM 9.8 mg/dL (8.5-10.3); CREATININE 0.5 mg/dL (0.6-1.3); POTASSIUM 2.7 mmol/L (3.5-4.5); TOTAL PROTEIN 6.5 g/dL (6.4-8.9)
[2024-02-06 19:27] LABS: THYROID STIMULATING HORMONE 2.34 uIU/mL (0.34-5.60)
[2024-02-06] MEDS: MAGNESIUM SULFATE 2 GRAM 2 GM/50 ML BAG IV ONE (19:39)
[2024-02-06] MEDS: LACTATED RINGERS 1,000 ML IV STA (19:39)
[2024-02-06 20:10] LABS: BILIRUBIN,URINE NEGATIVE (NEGATIVE); GLUCOSE, URINE (UA) NEGATIVE (NEGATIVE); KETONES,URINE (UA) 15 mg/dL (NEGATIVE); LEUKOCYTE ESTERASE, URINE NEGATIVE (NEGATIVE); NITRITE,URINE NEGATIVE (NEGATIVE); OCCULT BLOOD,URINE NEGATIVE (NEGATIVE); PH,URINE 6.5 PH (5.0-7.5); PROTEIN,URINE 30 mg/dL (NEGATIVE); UROBILINOGEN,URINE 0.2 (NORMAL) E.U./dL (NORMAL)
[2024-02-06 20:17] LABS: CLARITY,URINE CLEAR (CLEAR)
[2024-02-06 20:23] LABS: BACTERIA,URINE Few /HPF (None Seen); CASTS, URINE 0-2 Granular Casts /LPF; RBC,URINE 0-5 /HPF (0-5); SQUAMOUS EPITHELIAL CELL,UR MOD Squamous (<= Few)
[2024-02-06 20:25] LABS: B. PARAPERTUSSIS- RESP PCR PAN NOT DETECTED; B. PERTUSSIS- RESP PCR PANEL NOT DETECTED; C. PNEUMONIAE- RESP PCR PANEL NOT DETECTED; CORONAVIRUS 229E-RESP PCR NOT DETECTED; CORONAVIRUS HKU1-RESP PCR NOT DETECTED; CORONAVIRUS NL63-RESP PCR NOT DETECTED; CORONAVIRUS OC43-RESP PCR NOT DETECTED; HUMAN METAPNEUMOVIRUS NOT DETECTED; INFLUENZA A- RESP PCR PANEL NOT DETECTED; INFLUENZA B - RESP PCR PANEL NOT DETECTED; M. PNEUMONIAE- RESP PCR PANEL NOT DETECTED; PARAINFLUENZA VIRUS 1 NOT DETECTED; PARAINFLUENZA VIRUS 2 NOT DETECTED; PARAINFLUENZA VIRUS 3 NOT DETECTED; PARAINFLUENZA VIRUS 4 NOT DETECTED; RHINOVIRUS/ENTEROVIRUS NOT DETECTED; RSV- RESP PCR PANEL NOT DETECTED; SARS-CoV-2 -RESP PCR PANEL NOT DETECTED
[2024-02-06] MEDS ORDERED: iohexoL-300 100 ML VIAL ONE (20:42)
[2024-02-06] MEDS: POTASSIUM CHLOR 10 MEQ/100 ML 10 MEQ/100 ML BAG IV SCH (20:48)
[2024-02-06] MEDS: iohexoL-300 100 ML VIAL IVP ONE (21:20)
--- NOTE | 2024-02-06 21:47 | CT Report ---
PROCEDURE: Angio Chest INDICATIONS: Unexplained hypoxemia, PE protocol CONTRAST: Omni 300 80ml TECHNIQUE: After the administration of intravenous contrast, 2 mm axial images were acquired from the pulmonary apices to the posterior costophrenic angles during the arterial phase. In addition, 1 mm lung kernel and 5 mm soft tissue kernel reconstructions were performed. 3-dimensional coronal oblique maximum int ensity projection (MIP) reformats, 8 mm axial MIP, and 5 mm coronal and sagittal MPR reformats were t hen performed through the thorax. For radiation dose reduction, the following was used: automated exp osure control, adjustment of mA and/or kV according to patient size. COMPARISON: Chest radiograph 02/06/2024. FINDINGS: Image quality: Excellent. Large vessels: No filling defects within the opacified pulmonary arteries, accounting for motion and contrast timing. No evidence of acute aortic syndrome or aortic aneurysm. Lungs and pleura: No consolidation. No pleural effusions. No pneumothorax. No suspicious pulmonary n odules which require follow up. Mediastinum: Heart size is normal. No pericardial effusion. No large vessel abnormality. No mediastin al adenopathy by size criteria. Chest wall and lower neck: Thyroid is unremarkable. No axillary or supraclavicular adenopathy by size . Bones: No aggressive osseous abnormality. Scoliotic curvature of the thoracolumbar spine. Upper Abdomen: Unremarkable. IMPRESSION: No acute pulmonary embolus. No acute abnormality identified in the chest. Reviewed by: Lukas Ortega MD on 02/06/2024 9:46 PM PDT Approved by: Lukas Ortega MD on 02/06/2024 9:46 PM PDT Station ID: [id number]
[2024-02-06] MEDS ORDERED: ONDANSETRON 4 MG/2 ML VIAL IVP PRN (22:07)
[2024-02-06] MEDS: ASPIRIN CHEW 81 MG TABLET PO STA (22:44)
[2024-02-06] MEDS: ENOXAPARIN 60 MG/0.6 ML SYRINGE SUBQ SCH (23:58)
[2024-02-06] MEDS: DONEPEZIL 5 MG TABLET PO SCH (23:58)
[2024-02-07] MEDS: POTASSIUM CHLORIDE 20 MEQ/15 ML UDC PO STA (01:34)
--- NOTE | 2024-02-07 03:04 | ED Physician Documentation ---
ED Addendum - Addendum Addendum: 02/07/24 03:03 Patient endorsed to me by Dr. Chambers at 11pm shift change pending transfer for NSTEMI and syncopal episode in setting of new onset afib. d/w Dr. Bautista, stonework tracer at [facility] who states patient will not benefit from emergent cath at this time. transfer center will call back if they have bed available. 02/07/24 03:04 02/07/24 04:41 Patient waitlisted at [facility]. no bed right away. d/w Dr. Vincent, accepting hospitalist. no bed yet. Disposition transfer Impression 1. afib 2. NSTEMI 3. syncope Condition fair 02/07/24 05:51
[2024-02-07] MEDS: POTASSIUM CHLORIDE 20 MEQ TABLET PO SCH (05:54)
[2024-02-07 06:24] LABS: BASOPHILS % (AUTO) 0.4 %; EOSINOPHILS % (AUTO) 0.4 %; HCT - HEMATOCRIT 40.6 % (37.0-47.0); HGB - HEMOGLOBIN 12.6 g/dL (12.0-16.0); LYMPHOCYTES # (AUTO) 1.4 10^3/uL (1.5-3.5); LYMPHOCYTES % (AUTO) 20.4 %; MEAN CORPUSCULAR HEMOGLOBIN 34.1 pg (27.0-31.0); MEAN PLATELET VOLUME 11.1 fL (7.9-10.8); MONOCYTES # (AUTO) 0.9 10^3/uL (0.0-1.0); NEUTROPHILS # (AUTO) 4.4 10^3/uL (1.5-6.6); NEUTROPHILS % (AUTO) 65.7 %; PLT - PLATELET COUNT 188 10^3/uL (130-450); RED BLOOD COUNT 3.69 10^6/uL (4.20-5.40); RED CELL DISTRIBUTION WIDTH 13.6 % (12.0-15.0); WHITE BLOOD COUNT 6.7 x10^3/uL (4.8-10.8)
[2024-02-07 06:50] LABS: CREATININE 0.4 mg/dL (0.6-1.3); POTASSIUM 3.9 mmol/L (3.5-4.5)
[2024-02-07] MEDS: ATORVASTATIN 40 MG TABLET PO SCH (08:20)
[2024-02-07] MEDS: ASPIRIN CHEW 81 MG TABLET PO SCH (08:20)
[2024-02-07] MEDS: ACETAMINOPHEN 500 MG TABLET PO PRN (08:20)
[2024-02-07] MEDS: PANTOPRAZOLE 40 MG TABLET PO SCH (08:20)
[2024-02-07] MEDS: atenoloL 25 MG TABLET PO SCH (08:45)
--- NOTE | 2024-02-07 09:17 | PHARMACY PROGRESS NOTE ---
- Best Possible Medication History Admit Date and Time: Processed by: Nursing Medications reviewed in ED?: Yes As the person ultimately responsible for medication therapy, providers are able to order a medication from an existing home medication list in [facility] via the "Reconcile Routine" prior to Confirmation of that medication by lab support service tech. Such practice is discouraged except when the physician, in their clinical judgment, deems that a medical need exists for a medication without regard to previous use.
[2024-02-07 13:36] VITALS: BP 149/75; O2SAT 99
--- NOTE | 2024-02-17 08:21 | ED Physician Documentation ---
ED Addendum - Addendum Addendum: The patient was signed out to me at change of shift by Dr. Smith, pending bed availability at [facility]. The patient had already been accepted in transfer for non-ST elevation DC by Dr. Vincent. I was notified shortly thereafter that [facility] now had a bed and they were ready for transfer of the patient. The patient was still in agreement with the plan for transfer and was transferred without incident. Please see Dr. Smith's addendum for final impression list. Disposition: Transferred to [facility] in serious but stable condition. 02/17/24 08:18
== END 2024-02-07 13:52 | disposition short-term general hospital (02) ==
LOC: EDUNIT# → ED 18:16
DX: I21.4 Non-ST elevation (NSTEMI) myocardial infarction (principal); I48.91 Unspecified atrial fibrillation; F03.B0 Unspecified dementia, moderate, without behavioral disturbance, psychotic disturbance, mood disturbance, and anxiety; R55 Syncope and collapse; I10 Essential (primary) hypertension; E11.9 Type 2 diabetes mellitus without complications; E87.6 Hypokalemia; E83.42 Hypomagnesemia; R09.02 Hypoxemia; Z79.899 Other long term (current) drug therapy; Z79.82 Long term (current) use of aspirin
CPT/HCPCS: 36415; 71045; 71275; 80048; 80053; 81001; 83605; 83735; 84443; 84484; 85025; 87040; 87633; 93005; 93307; 96365; 96366; 96367; 96368; 96372; 99285; A9270; J1650; J7120; Q9967; 81003; 87086